=== PATIENT | male | born 1940 | race Caucasian/White ===

== ENCOUNTER 2017-10-13 15:18 | Emergency (ER) | payer MEDICARE, SELFPAY ==
[2017-10-13 15:27] VITALS: BP 139/63; PULSE 77; RESP 16; TEMP 36.8; O2SAT 95
--- NOTE | 2017-10-13 15:38 | ED.GENADUL_ITS ---
Disposition Clinical Impression: Closed head injury with brief loss of consciousness, Post concussive syndrome Disposition: HOME Condition: Stable Instructions: Head Injury (ED), Post Concussion Syndrome (ED) Additional Instructions: Drink plenty of fluids and get plenty of rest. Take Tylenol as needed and directed for pain. Follow-up with your primary care doctor within the next week. Return to the emergency department with any worsening or new concerning symptoms. Medical Decision Making - Radiology Data Radiology results: report reviewed, image reviewed CT head: Negative CT cervical spine: Negative - Medical Decision Making 77-year-old male who presents with head injury after hit on the top of his head with a tree branch at home while working outside prior to arrival. Brief LOC and multiple episodes of vomiting. Patient currently appears in no acute distress and he was able to ambulate back to the ED room. Left parietal ecchymosis but no lacerations. No focal deficits. Minimal midline lower cervical spine tenderness to palpation. Will give a dose of Tylenol, place a cervical collar, and send for CT head and cervical spine. 1715 --CT's reviewed and negative. Pt feels better and denies acute complaints. Instructed to rest, drink plenty of fluids and take Tylenol as needed and directed for pain. Instructed on postconcussive symptoms and that he can sometimes have headache, nausea, vomiting, dizziness for several days to weeks. He was instructed to return to the ER if he has any significant worsening of symptoms or any other concerns. Otherwise instructed to follow-up with primary care doctor for reevaluation within the next week. 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 Pt was outside working when a tree branch fell on his head. Pt admits to brief LOC and multiple episodes of vomiting en route. Pt admits to mild headache and neck pain. Denies any other injuries. - Related Data Chlorthalidone 12.5 mg PO DAILY 06/13/12 Losartan [Cozaar] 25 mg PO DAILY tab-cap 06/13/12 Amitriptyline HCl 25 mg PO HS #90 mg 08/21/12 Glimepiride [Amaryl] 2 mg PO DAILY tab-cap 08/21/12 Esomeprazole Magnesium [Nexium] 20 mg PO DAILY 06/09/17 Allergies Allergy/AdvReac Type Severity Reaction Status Date / Time JAKOB Inhibitors AdvReac Mild Unverified 06/12/17 08:48 TURKEY Allergy Mild Uncoded 06/12/17 08:48 Review of Systems Constitutional: denies: chills, fever Eyes: denies: eye pain ENT: denies: ear pain, dental pain Respiratory: denies: cough, shortness of breath Cardiovascular: denies: chest pain, dyspnea on exertion Gastrointestinal: denies: abdominal pain, nausea, vomiting Genitourinary: denies: urgency, dysuria, frequency Musculoskeletal: denies: back pain Skin: denies: rash, lesions Neurological: headache. denies: weakness, numbness Past Medical History - Past Medical History Medical history: diabetes, GERD, hypertension IBS Surgical history: cholecystectomy, herniorraphy, other (spinal cord stimulator ) - Social History Smoking status: never smoker Alcohol use: none Drug use: none General Exam - General Limitations: no limitations General appearance: alert, in no apparent distress - Head Head exam: Present: other (Approximately 3 x 3 cm area of tender ecchymosis noted to left parietal scalp. No open lacerations or abrasions.) - Eye Eye exam: Present: EOMI - Neck Neck exam: Present: other (Lower midline cervical spine tenderness to palpation. No bilateral paraspinal tenderness. No evidence of trauma to neck.) - Respiratory Respiratory exam: Present: normal lung sounds bilaterally. Absent: respiratory distress, wheezes, rales, rhonchi, stridor - Cardiovascular Cardiovascular Exam: Present: regular rate, normal rhythm. Absent: bradycardia , tachycardia - GI/Abdominal GI/Abdominal exam: Present: soft, normal bowel sounds. Absent: distended, tenderness, guarding, rebound, rigid - Neurological Exam Neurological exam: Present: alert, oriented X3, other (Muscle strength 5/5 bilateral upper extremities.) - Psychiatric Psychiatric exam: Present: normal affect - Skin Skin exam: Present: warm, dry, intact Course Vital Signs - 24 hr 10/13/17 15:27 Temperature 98.2 F Pulse 77 Respiratory 16 Rate Blood Pressure 139/63 Pulse Oximetry 95
--- NOTE | 2017-10-13 15:43 | DI.RPTCT_ITS ---
SYMPTOM/DIAGNOSIS: S/P HEAD INJURY, R/O INTRACRANIAL ABNORMALITY, CERVICAL FX NONCONTRAST HEAD CT: Comparison is made with 02 Jan 2010. No intracranial hemorrhage or skull fracture is seen. The sinuses and mastoid air cells appear clear. The ventricles are unchanged in size. IMPRESSION: No acute abnormality. CT CERVICAL SPINE: There is no evidence of fracture or subluxation. There are degenerative disc changes and mild facet degenerative changes. There is no prevertebral soft tissue swelling. The visualized portions of the lung apices show no evidence of pneumothorax. IMPRESSION: Degenerative changes. No acute abnormality.
[2017-10-13] MEDS: Acetaminophen 325 MG TAB 650 MG PO (16:27)
--- NOTE | 2017-10-13 16:49 | DI.VRAD_ITS ---
EXAM: CT Head Without Intravenous Contrast CLINICAL HISTORY: 77 years old, male; Pain; Headache; Headache not specified; Neck pain; Patient HX: Per pt: Tree fell on head; Additional info: R/O intracranial abnormality, cervical fracture TECHNIQUE: Axial computed tomography images of the head/brain without intravenous contrast. Coronal and sagittal reformatted images were created and reviewed. COMPARISON: No relevant prior studies available. FINDINGS: Brain: Nonspecific hypoattenuation of the periventricular and deep subcortical white matter, most likely secondary to chronic small vessel ischemic change. No intracranial hemorrhage or extra-axial fluid collection. No evidence of mass effect or midline shift. Garcia-white matter differentiation is normal. Ventricles: Prominence of the ventricles and sulci, most likely attributed to parenchymal volume loss. Bones/joints: Unremarkable. No acute fracture. Soft tissues: Minimal left frontal scalp contusion. Sinuses: Unremarkable as visualized. No acute sinusitis. Mastoid air cells: Unremarkable as visualized. No mastoid effusion. IMPRESSION: No acute intracranial pathology. EXAM: CT Cervical Spine Without Intravenous Contrast CLINICAL HISTORY: 77 years old, male; Pain; Headache; Headache not specified; Neck pain; Patient HX: Per pt: Tree fell on head; Additional info: R/O intracranial abnormality, cervical fracture TECHNIQUE: Axial computed tomography images of the cervical spine without intravenous contrast. Coronal and sagittal reformatted images were created and reviewed. COMPARISON: No relevant prior studies available. FINDINGS: Vertebrae: Vertebral body heights are maintained. No locked or perched facets. Multilevel facet arthropathy. No acute fracture. The dens is intact. Atlantoaxial intervals are normal. Discs/spinal canal/neural foramina: Multilevel degenerative changes with intervertebral disc height loss and osteophyte formation. No spinal canal stenosis. Soft tissues: Unremarkable. Lung apices: Unremarkable as visualized. IMPRESSION: No acute cervical spine fracture. Dictated and Authenticated by: Eb Berrios MD. Ordering:GENI SANTIZO MD
[2017-10-13 17:35] VITALS: BP 128/74; PULSE 68; RESP 18; TEMP 36.7; O2SAT 98
== END 2017-10-13 17:38 | disposition home or self-care (01) ==
PROVIDERS: Emergency Provider Physician Assistant; PCP Internal Medicine
DX: S06.9X9A Unspecified intracranial injury with loss of consciousness of unspecified duration, initial encounter (principal); F07.81 Postconcussional syndrome; R11.2 Nausea with vomiting, unspecified; M54.2 Cervicalgia; W20.8XXA Other cause of strike by thrown, projected or falling object, initial encounter; Y93.H2 Activity, gardening and landscaping; E11.9 Type 2 diabetes mellitus without complications; Z79.84 Long term (current) use of oral hypoglycemic drugs; I10 Essential (primary) hypertension
CPT/HCPCS: 70450; 72125; 99284; 99285; L0172

== ENCOUNTER 2017-12-22 10:13 | Outpatient (REF) | payer MEDICARE, SELFPAY ==
[2017-12-22 19:08] LABS: Cholesterol 125 mg/dL (50-200); HDL Cholesterol 37 mg/dL (40-60); LDL CHOLESTEROL 67 mg/dL (<100); Triglyceride 224 mg/dL (30-150)
== END 2017-12-22 10:33 ==
LOC: NCHCN 10:13
PROVIDERS: Visit Provider Internal Medicine
DX: E78.5 Hyperlipidemia, unspecified (principal)
CPT/HCPCS: 80061; 83721

== ENCOUNTER 2017-12-26 15:14 | Outpatient (CLI) | payer MEDICARE, SELFPAY ==
--- NOTE | 2017-12-26 13:30 | DI.CT_ITS ---
SYMPTOM/DIAGNOSIS: H/O HEAD INJURY, Z87.828, DIZZINESS, R42 NONCONTRAST HEAD CT: Comparison is made with 10/13/17. No intracranial hemorrhage or skull fracture is seen. The ventricles are normal in size. There is no significant atrophy. The orbits are unremarkable. The sinuses and mastoid air cells appear clear where visualized. IMPRESSION: Negative head CT.
== END 2017-12-26 15:34 ==
PROVIDERS: PCP Internal Medicine; Visit Provider Internal Medicine
DX: R42 Dizziness and giddiness (principal); Z87.828 Personal history of other (healed) physical injury and trauma
CPT/HCPCS: 70450

== ENCOUNTER 2018-07-02 10:40 | Outpatient (CLI) | payer MEDICARE, SELFPAY ==
--- NOTE | 2018-07-02 10:19 | DI.RAD_ITS ---
SYMPTOM/DIAGNOSIS: THORACIC BACK PAIN, M54.9, H/O FALL THORACIC SPINE: AP and lateral views. There is a mild right convex curvature of the thoracic spine. The disc heights and vertebral bodies are well maintained. There is bridging of the vertebral bodies anteriorly throughout. No suspicious lytic or sclerotic lesions are seen. There is a nerve stimulator device present. 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 Mild right convex curvature of the thoracic spine. No acute abnormality.
== END 2018-07-02 11:00 ==
PROVIDERS: PCP Internal Medicine; Visit Provider Specialist/Technologist Athletic Trainer
DX: M54.6 Pain in thoracic spine (principal); M48.14 Ankylosing hyperostosis [Forestier], thoracic region; Z96.89 Presence of other specified functional implants
CPT/HCPCS: 72072

== ENCOUNTER 2018-08-02 16:03 | Outpatient (REF) | payer MEDICARE, SELFPAY ==
[2018-08-02 21:29] LABS: Anion Gap 10.4 mmol/L (3-11); BUN 20 mg/dL (7-18); CO2 24.6 mmol/L (21.0-32.0); CREATININE 1.22 mg/dL (0.70-1.30); Calcium 9.3 mg/dL (8.5-10.1); Chloride 101 mmol/L (98-107); Estimated GFR 57.75 (mL/min/1.73m2); Glucose 271 mg/dL (70-100); Potassium 3.7 mmol/L (3.5-5.1); Sodium 136 mmol/L (136-145)
== END 2018-08-02 16:23 ==
LOC: NCHCN 16:03
PROVIDERS: PCP Internal Medicine; Visit Provider Internal Medicine
DX: I10 Essential (primary) hypertension (principal)
CPT/HCPCS: 80048

== ENCOUNTER 2019-07-11 09:58 | Outpatient (REF) | payer MEDICARE, SELFPAY ==
[2019-07-11 21:12] LABS: Anion Gap 8.9 mmol/L (3-11); BUN 24 mg/dL (7-18); CO2 29.1 mmol/L (21.0-32.0); Calcium 9.2 mg/dL (8.5-10.1); Chloride 93 mmol/L (98-107); Glucose 490 mg/dL (74-106); Potassium 4.1 mmol/L (3.5-5.1); Sodium 131 mmol/L (136-145)
== END 2019-07-11 10:18 ==
LOC: NCHCN 09:58
PROVIDERS: PCP Internal Medicine; Visit Provider Internal Medicine
DX: E11.9 Type 2 diabetes mellitus without complications (principal); I10 Essential (primary) hypertension
CPT/HCPCS: 80048; 83036

== ENCOUNTER 2020-02-27 10:42 | Outpatient (REF) | payer MEDICARE, SELFPAY ==
[2020-02-27 16:18] LABS: HGB 13.2 g/dL (13.5-17.5); MCH 33.3 pg (27.0-33.0); MCHC 34.7 % (32.0-36.0); MPV 10.5 fL (8.0-11.0); Platelet Count 233 10^3/uL (130-400); RBC 3.96 10^6/uL (4.36-5.78); RDW 15.3 % (11.8-14.1); RDW-SD 52.6 fL; WBC 7.16 10^3/uL (4.4-10.8)
[2020-02-27 16:23] LABS: Anion Gap 9.9 mmol/L (3-11); BUN 23 mg/dL (7-18); CO2 24.1 mmol/L (21.0-32.0); CREATININE 1.23 mg/dL (0.70-1.30); Calcium 9.3 mg/dL (8.5-10.1); Chloride 103 mmol/L (98-107); Estimated GFR 57.06 (mL/min/1.73m2); Glucose 181 mg/dL (74-106); Potassium 3.9 mmol/L (3.5-5.1); Sodium 137 mmol/L (136-145)
== END 2020-02-27 11:02 ==
LOC: NCHCN 10:42
PROVIDERS: PCP Internal Medicine; Visit Provider Internal Medicine
DX: M79.18 Myalgia, other site (principal); M54.5 Low back pain
CPT/HCPCS: 80048; 85027

== ENCOUNTER 2020-03-02 01:57 | Outpatient (CLI) | payer MEDICARE, SELFPAY ==
--- NOTE | 2020-03-02 | DI.RAD_ITS ---
EXAM: XR PELVIS AP CLINICAL HISTORY: MUSCULOSKELETAL PAIN, M79.10, LOW BACK PAIN, M54.5, RIB PAIN, R07.81. TECHNIQUE: 2D digital imaging was performed. COMPARISON: No exams were available for comparison FINDINGS: There is no evidence of pelvic or hip fracture. Mild degenerative changes in the right hip are noted . No osseous lesions. Thoracic stimulator lead device is noted left of center over the buttock. IMPRESSION: DATA REPOSITORY: RADIATION DOSE DELIVERED:
--- NOTE | 2020-03-02 | DI.RAD_ITS ---
EXAM: XR LUMBAR SPINE COMPLETE CLINICAL HISTORY: MUSCULOSKELETAL PAIN, M79.10, RIB PAIN, R07.81, LOW BACK PAIN, M54.5. TECHNIQUE: 2D digital imaging was performed. COMPARISON: No exams were available for comparison FINDINGS: There are thoracic epidural electrodes which appear to enter the spinal canal at approximately T12 le fredy. There is no evidence of lumbar spine fracture or listhesis. No pars interarticularis defects. Multi level anterior osseous lipping is noted but no disc space narrowing. Some degenerative changes in th e facet joints seen at L5-S1 and L4-5 levels. Also bridging right-sided osteophytes at L2-3 level. Sacroiliac joints appear unremarkable. No osseous lesions. No scoliosis. IMPRESSION: Thoracic epidural leads which enter at T12. Facet degenerative changes L5-S1 level and mild facet arthropathy also evident at L4-5. DATA REPOSITORY: RADIATION DOSE DELIVERED:
--- NOTE | 2020-03-02 | DI.RAD_ITS ---
EXAM: XR RIBS BI INCLUDE CHEST CLINICAL HISTORY: RIB PAIN, R07.81, MUSCULOSKELETAL PAIN, M79.10 TECHNIQUE: 2D digital imaging was performed. COMPARISON: No exams were available for comparison FINDINGS: There are no acute rib fractures evident. No lytic rib lesions identified. No lung contusion or pneumothorax. There is no pleural effusion evident. Heart size is normal and there is no significant mediastinal widening. Epidural leads are noted. The electrode lead tips are at the lower thoracic spine level. IMPRESSION: 1. No rib fractures evident. Also no obvious rib lesions. 2. No ipsilateral lung nor pleural abnormality evident. No pneumothorax. DATA REPOSITORY: RADIATION DOSE DELIVERED:
== END 2020-03-02 02:17 ==
PROVIDERS: PCP Internal Medicine; Visit Provider Internal Medicine
DX: R07.81 Pleurodynia (principal); M54.5 Low back pain; M17.11 Unilateral primary osteoarthritis, right knee; M47.816 Spondylosis without myelopathy or radiculopathy, lumbar region; Z96.82 Presence of neurostimulator
CPT/HCPCS: 71046; 71110; 72110; 72170

== ENCOUNTER 2020-03-03 22:38 | Outpatient (REF) | payer MEDICARE, SELFPAY ==
[2020-03-05 03:40] LABS: COVID-19 RT-PCR UVMMC Result Negative (Negative)
== END 2020-03-03 22:58 ==
LOC: NCHCN 22:38
PROVIDERS: PCP Internal Medicine; Visit Provider Internal Medicine
DX: Z20.828 Contact with and (suspected) exposure to other viral communicable diseases (principal)
CPT/HCPCS: U0003

== ENCOUNTER 2020-04-02 21:29 | Outpatient (REF) | payer MEDICARE, SELFPAY ==
[2020-04-02 20:52] LABS: Hemoglobin A1C 5.1 % (<5.7)
[2020-04-02 21:19] LABS: Vitamin B12 259 pg/mL (193-986)
[2020-04-06 10:58] LABS: Lyme Ab w Rflx to Lyme Confirm Negative (Negative)
[2020-04-06 13:25] LABS: Albumin 57.6 % (55.8-66.1); Total Protein 7.4 g/dL (6.3-8.2)
== END 2020-04-02 21:49 ==
LOC: NCHCN 21:29
PROVIDERS: PCP Internal Medicine; Visit Provider Internal Medicine
DX: E11.9 Type 2 diabetes mellitus without complications (principal); G83.12 Monoplegia of lower limb affecting left dominant side; G62.89 Other specified polyneuropathies; M62.81 Muscle weakness (generalized)
CPT/HCPCS: 82607; 83036; 84165; 86618

== ENCOUNTER 2020-04-06 02:18 | Outpatient (CLI) | payer MEDICARE, SELFPAY ==
--- NOTE | 2020-04-06 | DI.CT_ITS ---
EXAM: CT SACRUM AND COCCYX WO CLINICAL HISTORY: LT LEG WEAKNESS, G83.10. TECHNIQUE: Imaging Protocol: Axial computed tomography images with coronal and sagittal reformatted images were created and reviewed. COMPARISON: CT CT LUMBAR SPINE WO from 04/06/2020 FINDINGS: There are bridging anterior osteophytes of the sacroiliac joints bilaterally. No erosions are seen a t the sacroiliac joints. 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 The bone s are normally mineralized. No acute fracture or dislocation. There is atherosclerosis present. Battery pack for the patient's nerve stimulating device is seen in the left flank. There is diverticulosis of the sigmoid colon. No evidence of acute diverticulitis. IMPRESSION: 1. Bridging anterior osteophytes in the sacroiliac joints bilaterally. Differential considerations i nclude dish and osteoarthritis. There is a question of ankylosis of the left SI joint and sacroiliit is should be considered. 2. Sigmoid diverticulosis but no evidence of acute diverticulitis. RADIATION DOSE DELIVERED: 430.93mGy.cm Total DLP 430.93mGy.cm Total DLP DATA REPOSITORY: All CT scans at this facility are submitted to the National Radiology Data Registry (NRDR) Dose Index Registry (DIR) with the [employer] ([employer]). RADIATION OPTIMIZATION: All CT scans at this facility use at least one of these dose optimization te chniques: automated exposure control; mA and/or kV adjustment per patient size (includes targeted exa ms where dose is matched to clinical indication); or iterative reconstruction.
--- NOTE | 2020-04-06 | DI.CT_ITS ---
EXAM: CT LUMBAR SPINE WO CLINICAL HISTORY: LT LEG WEAKNESS,G83.10. TECHNIQUE: Imaging Protocol: Axial computed tomography images with coronal and sagittal reformatted images were created and reviewed COMPARISON: CR XR LUMBAR SPINE COMPLETE from 03/02/2020 FINDINGS: Bones: The last intervertebral disc space is designated the L5/S1 level for the numbering purpose of this examination. The vertebral body heights are well maintained. Alignment is satisfactory. No frac ture is seen. There are endplate osteophytes throughout the lumbar spine. Degenerative changes of th e facets are seen from L1-2 through L5-S1. T12-L1: No disc herniations or bulges are present. No significant central spinal canal or neural for aminal stenosis. L1-2: There is a mild diffuse disc bulge. This in combination with degenerative changes of the face t joints cause mild narrowing of the central spinal canal. There is mild narrowing of the neural for amen. L2-3: There is a mild diffuse disc bulge. This in combination with facet arthropathy causes mild na rrowing of the central spinal canal. No significant neural foraminal stenosis. L3-4: Mild diffuse disc bulge is present. This in conjunction with facet arthropathy causes mild na rrowing of the central spinal canal. No significant neural foraminal stenosis. L4-5: Mild diffuse disc bulge. There is mild narrowing of the central spinal canal. There is mild bilateral neural foraminal narrowing. L5-S1: No disc herniations or bulges are present. No significant central spinal canal or neural fora deidre stenosis. Soft Tissues: The visualized SI joints and sacrum are will maintained. The paraspinal soft tissues a re unremarkable. The distal aspect of a nerve stimulating device is seen. IMPRESSION: Multilevel degenerative changes resulting in central spinal canal or neural foraminal stenosis as lai cribed above. RADIATION DOSE DELIVERED: 716.88mGy.cm Total DLP 716.88mGy.cm Total DLP DATA REPOSITORY: All CT scans at this facility are submitted to the National Radiology Data Registry (NRDR) Dose Index Registry (DIR) with the [employer] (ACR). RADIATION OPTIMIZATION: All CT scans at this facility use at least one of these dose optimization te chniques: automated exposure control; mA and/or kV adjustment per patient size (includes targeted exa ms where dose is matched to clinical indication); or iterative reconstruction.
== END 2020-04-06 02:38 ==
PROVIDERS: PCP Internal Medicine; Visit Provider Internal Medicine
DX: M51.26 Other intervertebral disc displacement, lumbar region (principal); M48.061 Spinal stenosis, lumbar region without neurogenic claudication; M47.816 Spondylosis without myelopathy or radiculopathy, lumbar region; M25.78 Osteophyte, vertebrae; K57.30 Diverticulosis of large intestine without perforation or abscess without bleeding; G83.14 Monoplegia of lower limb affecting left nondominant side
CPT/HCPCS: 72131; 72192

== ENCOUNTER → 2020-04-09 13:40 | Outpatient (BNVA) | payer MEDICARE, SELFPAY | PROVIDERS: PCP Internal Medicine; Referring Provider Internal Medicine; Visit Provider Psychiatry & Neurology Neurology | DX: E11.42 Type 2 diabetes mellitus with diabetic polyneuropathy (principal); R29.898 Other symptoms and signs involving the musculoskeletal system; M54.5 Low back pain; I10 Essential (primary) hypertension | CPT/HCPCS: 95886; 95911; 99215; G2212 ==

== ENCOUNTER 2020-07-24 12:17 | Outpatient (REF) | payer MEDICARE, SELFPAY ==
[2020-07-24 18:50] LABS: HCT 39.4 % (40.0-50.0); HGB 13.6 g/dL (13.5-17.5); MCH 33.2 pg (27.0-33.0); MCHC 34.5 % (32.0-36.0); MCV 96.1 fL (80-95); MPV 10.2 fL (8.0-11.0); Platelet Count 284 10^3/uL (130-400); RDW 14.9 % (11.8-14.1); RDW-SD 52.4 fL; WBC 8.34 10^3/uL (4.4-10.8)
[2020-07-24 19:06] LABS: ALT 26 U/L (16-63); AST 18 U/L (15-37); Alkaline Phosphatase 83 U/L (46-116); Anion Gap 12.1 mmol/L (3-11); BUN 17 mg/dL (7-18); Bilirubin, Total 0.9 mg/dL (0.2-1.0); CO2 24.9 mmol/L (21.0-32.0); CREATININE 1.1 mg/dL (0.70-1.30); Calcium 9.2 mg/dL (8.5-10.1); Chloride 103 mmol/L (98-107); Glucose 199 mg/dL (74-106); Potassium 4.1 mmol/L (3.5-5.1); Sodium 140 mmol/L (136-145); Total Protein 7.8 g/dL (6.4-8.2)
[2020-07-24 19:26] LABS: Hemoglobin A1C 4.8 % (<5.7)
== END 2020-07-24 12:18 | disposition home or self-care (01) ==
LOC: NCHCN 12:17
PROVIDERS: PCP Internal Medicine; Visit Provider Internal Medicine
DX: E11.9 Type 2 diabetes mellitus without complications (principal); I10 Essential (primary) hypertension; Z01.812 Encounter for preprocedural laboratory examination
CPT/HCPCS: 80053; 85027; 83036

== ENCOUNTER 2020-08-26 17:04 | Outpatient (REF) | payer MEDICARE, SELFPAY ==
[2020-08-26 15:19] LABS: C Diff PCR Negative (Negative)
== END 2020-08-26 17:05 | disposition home or self-care (01) ==
LOC: NCHCN 17:04
PROVIDERS: PCP Internal Medicine; Visit Provider Internal Medicine
DX: R19.7 Diarrhea, unspecified (principal)
CPT/HCPCS: 87493; 82272; 82274; 83630; 87230

== ENCOUNTER 2020-10-07 09:42 | Outpatient (REF) | payer MEDICARE, SELFPAY ==
[2020-10-07 14:35] LABS: Hemoglobin A1C 5.5 % (<5.7)
== END 2020-10-07 09:43 | disposition home or self-care (01) ==
LOC: NCHCN 09:42
PROVIDERS: PCP Internal Medicine; Visit Provider Internal Medicine
DX: E11.9 Type 2 diabetes mellitus without complications (principal)
CPT/HCPCS: 83036

== ENCOUNTER 2020-10-13 18:52 | Observation (INO) | payer MEDICARE, SELFPAY ==
[2020-10-13] VITALS (44 sets, daily range): BP systolic 122–162; BP diastolic 50–75; PULSE 71–83; RESP 9–22; TEMP 37; O2SAT 90–100
--- NOTE | 2020-10-13 19:30 | RT.EKG_ITS ---
APPROVED REPORT Exam: Resting ECG Reason for Exam: syncope Patient Location: E HR:80 bpm ECG Measurements Heart Rate 80 AXIS HI 191 P 50 QRSd 97 QRS 65 QT 385 T 85 QTc 445 Conclusion Sinus rhythm...normal P axis, V-rate 60- 99 Low voltage, extremity leads...all extremity leads <0.5mV Nonspecific T abnormalities, lateral leads...T <-0.10mV, I aVL V5 V6. T wave inversion in aVL. No STEMI. I have reviewed and interpreted ECG and agree with software generated interpretation.
--- NOTE | 2020-10-13 19:35 | ED.GENADUL_ITS ---
Discharge Plan Disposition Condition: Stable Discharge Details Chief Complaint: Nk/Back Pain Admit Date/Time: 10/13/20 23:16 Admit Provider: Leonard Aguila Attending Provider: Leonard Aguila Primary Care Provider: Miguel A Varner ED Provider: Teena Copeland Discharge Instructions Activity:: Activity as Tolerated Equipment/Supplies:: No Equipment Needed Diet:: As Tolerated Discharge Orders Discharge Orders: Discharge Order (Routine); Ordered 10/14/20 Ordered By: Cecilia Scanlon Discharge Data Discharge Date/Time-TO BE ENTERED AT DEPARTURE: 10/14/20 01:20 Medical Decision Making Patient is a pleasant 80-year-old male presenting today with chief complaint of syncopal episode. Patient reports that he was coming out of his house onto his lawn, states that he was feeling quite well. However, he reports that he woke up just prior to hitting the ground. States that he is now having some right- sided chest wall pain and severe discomfort with inspiration. States that he held his head up, did not strike his head. Denies any headache, visual changes. He denies any weakness. Patient reports that he had surgery on his back beginning of August. Since that time, has had improving left lower extremity weakness. Has been ambulating more than, surgery gotten very beneficial. Not having any pain or complaints associated with this. He received 4 mg of morphine prior to arrival. States that he took Tylenol this afternoon prior to his fall. On exam, he appears uncomfortable but nontoxic. Normal cardiac exam. Primary concern at this time is right lateral inferior chest wall pain. No objective evidence of trauma. Lungs are clear. With no prodromal symptoms, concerned for possible cardiac source of his syncope. Although the CP is most consistent with trauma, also considered PE as source of pleuritic pain and syncope. Will obtain CT PE. ECG reviewed by Dr. Saxena. Concerning for T wave abnormalities and low voltage. Labs reviewed, no leukocytosis, stable H&H. Glucose elevated at 240. CT reviewed by radiologist: FINDINGS: Brain: No acute intracranial hemorrhage, mass-effect, midline shift, or extra-axial collection is seen. The sahni white matter differentiation appears preserved. There is symmetric parenchymal volume loss. Cerebral ventricles: The ventricular system and basilar cisterns appear appropriate in size and configuration given the degree of parenchymal volume loss. Paranasal sinuses: There is mucoperiosteal thickening in the right maxillary sinus. Otherwise, the visualized paranasal sinuses appear clear. Mastoid air cells: The mastoid air cells appear well-aerated. Auditory system: The middle ear cavities appear clear. Orbital cavity: The globes and intraorbital structures appear grossly intact. Bones/joints: The bony calvarium appears intact. No depressed skull fracture is seen. There is hyperostosis frontalis interna. There is an old left medial orbital wall blowout fracture. There is rightward deviation of the nasal septum. Soft tissues: No gross focal scalp hematoma is seen. IMPRESSION: No acute intracranial hemorrhage or depressed skull fracture. FINDINGS: Pulmonary arteries: Normal. No pulmonary emboli. Aorta: Unremarkable. No aortic aneurysm. No aortic dissection. Lungs: Unremarkable. No consolidation. No masses. Pleural spaces: Unremarkable. No pneumothorax. No pleural effusion. Heart: Coronary artery calcifications identified. Lymph nodes: Unremarkable. No enlarged lymph nodes. Gallbladder and bile ducts: Status post cholecystectomy. Stomach and bowel: There is a fat density focus that looks fairly elongated in the 3rd portion of the duodenum series 4, images 74-76. It measures approximately 0.6 by at least 2.7 cm. Suspect lipoma. Bones/joints: Unremarkable. No acute fracture. Soft tissues: Unremarkable. IMPRESSION: 1. No evidence for pulmonary embolus. 2. 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 3. No definite acute posttraumatic abnormality evident. Discussed findings with patient and his . He has required a few alloquotes of morphine for his rib pain. Will start him on IS. His pain has been difficult to manage, concerned that this may be hard for him at home. Also concerned for source of syncope. Feel that admission for observation would be appropriate. Patient in agreement with this plan. Consulted with hospitalist who agrees to admission. HPI General Mode of arrival: EMS . Date/Time Provider Initiated Documentation: 10/13/20 19:35 . Limitations to Documentation: no limitations . Information obtained by: patient, family (), EMS and RN notes reviewed . History of Present Illness 80 year old M presents to the emergency department with the chief complaint of right sided lower chest wall pain after syncopal episode, described as moderate, with intensity rated at 3. Quality is described as stabbing, and is localized to the chest. Patient reports no radiation. Patient started experiencing this minute(s) and it has been constant. Immobilization improves symptom(s), Movement worsens symptoms . Patient notes no other symptoms.. Patient did receive the following treatments prior to arrival, other (morphine) Related Data Home Medications Medication Instructions Recorded Confirmed esomeprazole magnesium [Nexium] 20 mg PO DAILY 06/09/17 10/13/20 hydrochlorothiazide 12.5 mg tablet 12.5 mg PO DAILY 04/08/20 10/13/20 acetaminophen 500 mg tablet 500 mg PO Q6H PRN 04/09/20 10/13/20 losartan 50 mg PO DAILY #0 tab 10/14/20 10/13/20 Previous Rx's Medication Instructions Recorded losartan 50 mg PO DAILY #0 tab 10/14/20 Allergies Allergy/AdvReac Type Severity Reaction Status Date / Time metformin Allergy Intermediate Verified 10/13/20 19:06 Hocczjs-Yef-Rby Reductase Allergy Intermediate Verified 10/13/20 19:06 Inhibitor JAKOB Inhibitors AdvReac Mild Unverified 10/13/20 19:06 TURKEY Allergy Mild Uncoded 10/13/20 19:06 General Stated Complaint: Orthopedic SRIDEVI: 3 Review of Systems Constitutional Constitutional: Reports as per HPI, Denies chills, Denies fever(s), Denies headache(s), Denies lethargy and Denies poor appetite Eyes Eyes: Denies change in vision ENT Ears, Nose, Mouth, and Throat: Denies vertigo, Denies dizziness and Denies headache(s) Cardiovascular Cardiovascular: Reports as per HPI, Reports syncope, Denies dyspnea and Denies dyspnea on exertion Respiratory Respiratory: Reports as per HPI, Denies chest congestion, Denies cough, Reports pain on inspiration, Reports pain with cough, Denies dyspnea, Denies dyspnea on exertion and Denies wheezing Gastrointestinal Gastrointestinal: Reports as per HPI, Denies abdominal pain, Denies diarrhea, Denies nausea and Denies vomiting Genitourinary Genitourinary: Denies system reviewed and no additional complaints, except as documented (denies change in urinary habits) Musculoskeletal Musculoskeletal: Reports as per HPI and Denies back pain Integumentary/Breasts Skin/Breast: Reports as per HPI and Denies rash Neurologic Neurologic: Reports as per HPI, Denies confusion, Denies vertigo, Denies dizziness, Reports syncope and Denies headache(s) Psychiatric Psychiatric: Denies confusion Allergic/Immunologic Allergic/Immunologic: Denies wheezing [facility] Medical History Actinic keratosis Acute chest wall pain Arthritis of right ankle Esophagitis, reflux History of IBS Hx of adenomatous colonic polyps Hx of head injury Hyperlipidemia Hypertension Lactose intolerance Low back pain Peripheral neuropathy Reflex sympathetic dystrophy of lower limb Right leg Renal cyst, congenital, right Retinal hemorrhage Rib pain Seborrheic dermatitis Sleep disturbances Syncope and collapse determined by examination Type 2 diabetes mellitus Surgical History S/P cataract extraction S/P cholecystectomy S/P hernia surgery S/P right knee surgery S/P skin cancer resection Family History Mother Diabetes Social History Smoking/Tobacco Use Status: Former Tobacco Use Smoking risk assessment performed?: Yes Alcohol Intake: never Drug use: Never Household members: spouse Housing: house Number of Children: 4 current occupation: Retired Pets and animals: Yes Pets and animals: cat(s) What is your relationship status?: Panel score (0-1 are the most socially isolated patients): 1 Seatbelt use: always Do you feel safe at home: Yes Do you feel safe in your relationship?: Yes Exam Const General: cooperative, healthy appearing, uncomfortable, no acute distress and well developed Nutritional Appearance: average body habitus and well nourished Orientation: alert, awake and oriented x3 HENMT Head: normal to inspection Ears: hearing grossly normal bilaterally Mouth: moist mucous membranes Chest Chest: normal inspection of the chest, normal palpation of entire chest wall, no crepitus and tenderness (right lateral chest wall) Resp Effort & Inspection: normal respiratory effort, able to speak in complete sentences and no respiratory distress Auscultation: clear to auscultation bilaterally, no rales, no rhonchi and no wheezes Cardio Rate: regular rate Rhythm: regular rhythm Heart Sounds: S1 normal and S2 normal GI Inspection: normal to inspection, no edema and non-distended Palpation: soft, no hepatosplenomegaly, not firm, no guarding, not rigid and nontender Auscultation: normal bowel sounds Back/Spine/Pelvis Back: no CVA tenderness Cervical Spine: normal cervical lordosis, cervical ROM normal, No cervical muscular tenderness, No pain with cervical ROM, No cervical spasm and No step off deformity Thoracic/Lumbar Spine: thoracic and lumbar spine normal to inspection Skin General skin exam: no rashes or lesions noted Trauma: no lacerations or abrasions Neuro General: patient alert, patient awake and patient oriented x3 Cognition: normal cognition Speech: speech normal Motor: muscle tone normal throughout, strength 5/5 throughout, no pronator drift, no movement abnormalities noted and no fasciculations Sensory Exam: no sensory deficits noted Extrem General: normal to inspection, capillary refill normal, no pedal edema and no calf tenderness Psych Appearance: grossly normal and well kempt Mental Status: mental status grossly normal Speech and Movement: speech and movement normal Course Vital Signs Vital signs: Vital Signs Temperature 37 C 10/13/20 18:59 Pulse 78 10/13/20 18:59 Respiratory Rate 18 10/13/20 18:59 Blood Pressure 145/67 H 10/13/20 18:59 Pulse Oximetry 98 10/13/20 18:59 Temperature 37 C 10/13/20 18:59 Temperature Source Temporal Artery Scan 10/13/20 18:59 Pulse 78 10/13/20 18:59 Respiratory Rate 18 10/13/20 18:59 Respiratory Effort Non-Labored 10/13/20 19:08 Blood Pressure 145/67 H 10/13/20 18:59 Blood Pressure Position Supine 10/13/20 18:59 Pulse Oximetry 98 10/13/20 18:59 Oxygen Delivery Method Room Air 10/13/20 18:59 Oxygen Flow Rate 0 10/13/20 18:59 Pain Level 3 10/13/20 19:19
--- NOTE | 2020-10-13 19:45 | DI.CT_ITS ---
Exam(s) CT HEAD WO EXAM: CT HEAD WO CLINICAL HISTORY: fall. TECHNIQUE: Imaging Protocol: Axial computed tomography images with coronal and sagittal reformatted images were created and reviewed COMPARISON: CT CT HEAD WO from 12/26/2017 FINDINGS: Ventricles and Extra axial spaces: Normal in size and morphology for the patient's age. Hemorrhage: None. Cerebral parenchyma: Atrophy. White matter changes consistent with small vessel disease. Midline shift: None. Brainstem/Cerebellum: Normal. Calvarium: Hyperostosis frontalis interna. Old left medial orbital fracture. Visualized Paranasal sinuses/Mastoids: Mucosal thickening right maxillary sinus. IMPRESSION: No acute abnormality. RADIATION DOSE DELIVERED: 873.2mGy.cm Total DLP 873.2mGy.cm Total DLP DATA REPOSITORY: All CT scans at this facility are submitted to the National Radiology Data Registry (NRDR) Dose Index Registry (DIR) with the [employer] ([employer]). RADIATION OPTIMIZATION: All CT scans at this facility use at least one of these dose optimization te chniques: automated exposure control; mA and/or kV adjustment per patient size (includes targeted exa ms where dose is matched to clinical indication); or iterative reconstruction.
--- NOTE | 2020-10-13 19:46 | DI.CT_ITS ---
Exam(s) CT CHEST PE CTA EXAM: CT CHEST PE CTA CLINICAL HISTORY: syncopal episode, right lower chest wall pain. TECHNIQUE: Imaging Protocol: Axial CT angiography was performed with multi-slice acquisition and mu lti-planar and/or 3D reconstructions. CONTRAST MATERIAL: Intravenous: Omnipaque 350 Contrast volume:100 ml COMPARISON: CT RENAL COLIC WO CONTRAST from 02/04/2010 CR XR RIBS BI INCLUDE CHEST from 03/02/2020 CR XR RIBS BI INCLUDE CHEST from 03/02/2020 FINDINGS: Images include from the level of the clavicles flow through the lower poles of the kidneys. Pulmonary Arteries: No evidence of filling defect to suggest pulmonary emboli. Tracheobronchial tree: Patent where visualized. Mediastinum and Symone: No dominant adenopathy or fluid collection. Pulmonary parenchyma: No consolidation or dominant measurable mass. No architectural distortion. Pleura: No effusion or pneumothorax. Heart: The heart is mildly dilated. Mild coronary artery calcifications are seen. Aorta: Thoracic aorta non-dilated. Minimal calcifications. Upper abdomen: Status post cholecystectomy. Stable fatty density lesion seen within the third porti on of the duodenum, consistent with a lipoma. stable fatty density lesion of the left adrenal gland . Fatty infiltration of the liver. Moderate atherosclerotic changes abdominal aorta. Bones: Flowing osteophytes. No compression fracture. No rib fractures visible. : IMPRESSION: No evidence of pulmonary embolism or other acute abnormality.. RADIATION DOSE DELIVERED: 582.93mGy.cm Total DLP DATA REPOSITORY: All CT scans at this facility are submitted to the National Radiology Data Registry (NRDR) Dose Index Registry (DIR) with the [employer] ([employer]). RADIATION OPTIMIZATION: All CT scans at this facility use at least one of these dose optimization te chniques: automated exposure control; mA and/or kV adjustment per patient size (includes targeted exa ms where dose is matched to clinical indication); or iterative reconstruction.
[2020-10-13] MEDS: Normal Saline 1,000 ML 1000 ML IV (20:00)
[2020-10-13] MEDS: MORPHine 4 MG/ML SYR IVP ×2 (20:01→23:09)
[2020-10-13 20:09] LABS: Abs Immature Grans 0.04 10^3/uL (0.0-0.06); Absolute Basophil Count 0.01 10^3/uL (0.0-0.2); Absolute Lymphocyte Count 1.51 10^3/uL (1.2-3.4); Absolute Monocyte Count 0.68 10^3/uL (0.1-0.8); Absolute Neutrophil Count 7.55 10^3/uL (1.2-6.7); Basophils % 0.1; HCT 34.7 % (40.0-50.0); HGB 12.2 g/dL (13.5-17.5); Immature Grans % 0.4; Lymphocytes % 15.3; MCH 32.8 pg (27.0-33.0); MCHC 35.2 % (32.0-36.0); MCV 93.3 fL (80-95); MPV 10.4 fL (8.0-11.0); Monocytes % 6.9; Neutrophils % 76.3; Nucleated RBC 0 %; Platelet Count 200 10^3/uL (130-400); RBC 3.72 10^6/uL (4.36-5.78); RDW 15.3 % (11.8-14.1); RDW-SD 52.7 fL; WBC 9.89 10^3/uL (4.4-10.8)
[2020-10-13 20:23] LABS: ALT 17 U/L (16-63); AST 18 U/L (15-37); Albumin 3.6 g/dL (3.4-5.0); Alkaline Phosphatase 88 U/L (46-116); Anion Gap 9.8 mmol/L (3-11); BUN 16 mg/dL (7-18); Bilirubin, Total 1.1 mg/dL (0.2-1.0); CO2 24.2 mmol/L (21.0-32.0); CREATININE 1.1 mg/dL (0.70-1.30); Calcium 9.3 mg/dL (8.5-10.1); Chloride 105 mmol/L (98-107); Glucose 241 mg/dL (74-106); Magnesium 1.7 mg/dL (1.8-2.4); Potassium 3.6 mmol/L (3.5-5.1); Sodium 139 mmol/L (136-145); Total Protein 7.2 g/dL (6.4-8.2)
[2020-10-13 20:24] LABS: PTT Activated 23.2 sec (21.0-27.5); Prothrombin Time 10.3 sec (9.3-11.0); Troponin I < 0.05 ng/mL (<0.06)
--- NOTE | 2020-10-13 20:46 | NUR.NOTE ---
Patient requests to void. Urinal provided. Able to turn to left side. Tolerates movement well; complains of increased mid back pain. Spouse at bedside. Unable to void. Will try again later.Nursing Note:
--- NOTE | 2020-10-13 21:33 | NUR.NOTE ---
To CT Scan per cartNursing Note:
[2020-10-13] MEDS: Omnipaque 350 MG/ML 100 ML BTL IV (21:42)
[2020-10-13] MEDS: Normal Saline - Diluent 50 ML VIAL IV (21:43)
[2020-10-13] MEDS: Normal Saline Flush 10 ML SYR IVP (21:43)
--- NOTE | 2020-10-13 21:59 | DI.VRAD_ITS ---
PROCEDURE INFORMATION: Exam: CT Head Without Contrast Exam date and time: 10/13/2020 7:54 PM Age: 80 years old Clinical indication: Injury or trauma; Fall; Blunt trauma (contusions or hematomas); Consciousness not specified; Injury date: 10/13/20 TECHNIQUE: Imaging protocol: Computed tomography of the head without contrast. Radiation optimization: All CT scans at this facility use at least one of these dose optimization techniques: automated exposure control; mA and/or kV adjustment per patient size (includes targeted exams where dose is matched to clinical indication); or iterative reconstruction. COMPARISON: CT HEAD WO 12/26/2017 1:16 PM FINDINGS: Brain: No acute intracranial hemorrhage, mass-effect, midline shift, or extra-axial collection is seen. The sahni white matter differentiation appears preserved. There is symmetric parenchymal volume loss. Cerebral ventricles: The ventricular system and basilar cisterns appear appropriate in size and configuration given the degree of parenchymal volume loss. Paranasal sinuses: There is mucoperiosteal thickening in the right maxillary sinus. Otherwise, the visualized paranasal sinuses appear clear. Mastoid air cells: The mastoid air cells appear well-aerated. Auditory system: The middle ear cavities appear clear. Orbital cavity: The globes and intraorbital structures appear grossly intact. Bones/joints: The bony calvarium appears intact. No depressed skull fracture is seen. There is hyperostosis frontalis interna. There is an old left medial orbital wall blowout fracture. There is rightward deviation of the nasal septum. Soft tissues: No gross focal scalp hematoma is seen. IMPRESSION: No acute intracranial hemorrhage or depressed skull fracture. Dictated and Authenticated by: Hunter Paniagua MD. Ordering:PARAS Dickinson MD
--- NOTE | 2020-10-13 22:19 | DI.VRAD_ITS ---
PROCEDURE INFORMATION: Exam: CTA Chest With Contrast Exam date and time: 10/13/2020 9:44 PM Age: 80 years old Clinical indication: Pain and injury or trauma; Fall; Blunt trauma (contusions or hematomas); Chest wall pain and right-sided; Injury date: 10/13/20; Injury details: Syncopal episode, right lower chest wall pain, rib pain; Prior surgery; Surgery date: 6+ months; Surgery type: Cholecystectomy, back surgery TECHNIQUE: Imaging protocol: Computed tomographic angiography of the chest with contrast. 3D rendering (Not supervised by radiologist): MIP and/or 3D reconstructed images were created by the technologist. Radiation optimization: All CT scans at this facility use at least one of these dose optimization techniques: automated exposure control; mA and/or kV adjustment per patient size (includes targeted exams where dose is matched to clinical indication); or iterative reconstruction. Contrast material: [id number]; Contrast volume: 100 ml; Contrast route: INTRAVENOUS (IV); COMPARISON: CR XR RIBS BI INCLUDE CHEST 03/02/2020 9:09 AM FINDINGS: Pulmonary arteries: Normal. No pulmonary emboli. Aorta: Unremarkable. No aortic aneurysm. No aortic dissection. Lungs: Unremarkable. No consolidation. No masses. Pleural spaces: Unremarkable. No pneumothorax. No pleural effusion. Heart: Coronary artery calcifications identified. Lymph nodes: Unremarkable. No enlarged lymph nodes. Gallbladder and bile ducts: Status post cholecystectomy. Stomach and bowel: There is a fat density focus that looks fairly elongated in the 3rd portion of the duodenum series 4, images 74-76. It measures approximately 0.6 by at least 2.7 cm. Suspect lipoma. Bones/joints: Unremarkable. No acute fracture. Soft tissues: Unremarkable. IMPRESSION: 1. No evidence for pulmonary embolus. 2. 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 3. No definite acute posttraumatic abnormality evident. Dictated and Authenticated by: Lia Ayala MD. Ordering:PARAS Dickinson MD
--- NOTE | 2020-10-13 23:25 | HPE_ITS ---
Date of service: 10/13/20 Time of Service: 23:26 Assessment and Plan Assessment and plan (1) Syncope and collapse determined by examination: Start date: 10/13/20 Status: Acute Assessment and plan: This is a 80-year-old gentleman who had a syncopal episode at home which was unprovoked with no evidence of seizure activity or postictal state. He had no focalizing neurological complaints before or after the event and he denies any visceral pain or anginal type symptoms but does have chest wall pain with breathing. His initial lab revealed slightly elevated creatinine with chronic stable anemia and macrocytosis. Cardiac monitoring overnight had revealed no dysrhythmias and patient's troponins have trended negative thus far. Continue to monitor with physical therapy to assess for mobility to ambulate safely to return home after observation. Further outpatient work-up can be sought for syncopal episode. This does not appear to be cardiovascular and there is no suggestion of neurological etiology. His mild anemia with macrocytosis need to be further investigated. He may have been slightly dry with his creatinine slightly elevated. Patient does live at home with his . He is a full code. (2) Acute chest wall pain: Start date: 10/13/20 Status: Acute Assessment and plan: No evidence of fractures with patient to have physical therapy evaluate for safe ambulation. He may be somewhat compromised with recent back surgery and core muscle strengthening may be needed long-term. (3) Low back pain: Status: Chronic Assessment and plan: Status post decompression of spinal stenosis and removal of hardware for spinal stimulator which was causing problem with left sciatica. This appears to be healing well and did not appear to be imaged by his fall. Follow-up clinically. Physical therapy evaluation. Core muscle strengthening is important for continued recovery. Qualifiers: Back pain laterality: midline Chronicity: chronic Sciatica presence: without sciatica Qualified Code(s): M54.5 - Low back pain; G89.29 - Other chronic pain (4) Type 2 diabetes mellitus: Status: Chronic Assessment and plan: Patient does have hyperglycemia with stress he may be prediabetic but is on no medical therapy as outpatient. Glucometers with short acting insulin coverage while hospitalized. Patient should eat a diabetic diet. Qualifiers: Diabetes mellitus complication status: without complication Diabetes mellitus nursing home insulin use: without nursing home use Qualified Code(s): E11.9 - Type 2 diabetes mellitus without complications History of Present Illness History of Present Illness Chief Complaint: Syncopal episode with injury to the chest wall Narrative: This is a 80-year-old male patient who recently had back surgery to remove a spinal stimulator which was causing left sciatica and had decompression of spinal stenosis in the lumbar region down 05/10/2020. He was walking down his ramp off his yard and feeling much better after having surgery with minimal pain. He states that things went black and he fell backward onto the lawn awakening just before he struck the ground protecting his head from hitting the ground. He denies any headache, nausea or vomiting but was having chest pain with breathing over the right more the left chest wall. In the ED he was evaluated and had no acute fractures or acute findings on scanning. Because of his shallow breathing and unknown reason for his syncope, he was observed on telemetry with trending of lab. When I saw the patient he was awake and remembered the event just before hitting the ground but had no prodrome prior to being going black. He does have a history of diabetes or prediabetic state and is on no medical therapy for this problem. Patient denies any cough or hemoptysis. He is comfortable lying still in bed. Does hurt his chest wall over the right more than left anteriorly when taking a deep breath. His shallow breathing. He had no focal neurological complaints. When he awakened he was not diaphoretic and had no incontinence of urine or stool and did not bite his tongue. Review of Systems Narrative: 13 point review of systems otherwise unrevealing or stable. FOR[facility] Medical History (Updated 10/14/20 @ 14:46 by Leonard Aguila) Actinic keratosis Acute chest wall pain Arthritis of right ankle Esophagitis, reflux History of IBS Hx of adenomatous colonic polyps Hx of head injury Hyperlipidemia Hypertension Lactose intolerance Low back pain Peripheral neuropathy Reflex sympathetic dystrophy of lower limb Right leg Renal cyst, congenital, right Retinal hemorrhage Rib pain Seborrheic dermatitis Sleep disturbances Syncope and collapse determined by examination Type 2 diabetes mellitus Surgical History S/P cataract extraction S/P cholecystectomy S/P hernia surgery S/P right knee surgery S/P skin cancer resection Family History Mother Diabetes Social History Smoking/Tobacco Use Status: Former Tobacco Use Smoking risk assessment performed?: Yes Alcohol Intake: never Drug use: Never Household members: spouse Housing: house Number of Children: 4 current occupation: Retired Pets and animals: Yes Pets and animals: cat(s) What is your relationship status?: Panel score (0-1 are the most socially isolated patients): 1 Seatbelt use: always Do you feel safe at home: Yes Do you feel safe in your relationship?: Yes Meds Allergies and Home Medications Allergies Allergy/AdvReac Type Severity Reaction Status Date / Time metformin Allergy Intermediate Verified 10/13/20 19:06 Priqidx-Hve-Vhk Reductase Allergy Intermediate Verified 10/13/20 19:06 Inhibitor AJKOB Inhibitors AdvReac Mild Unverified 10/13/20 19:06 TURKEY Allergy Mild Uncoded 10/13/20 19:06 Home Medications Medication Instructions Recorded Confirmed Type esomeprazole magnesium [Nexium] 20 mg PO DAILY 06/09/17 10/13/20 History hydrochlorothiazide 12.5 mg tablet 12.5 mg PO DAILY 04/08/20 10/13/20 History losartan 100 mg tablet 100 mg PO DAILY 04/08/20 10/13/20 History acetaminophen 500 mg tablet 500 mg PO Q6H PRN 04/09/20 10/13/20 History Exam Narrative Exam Narrative: General: Patient appears appropriate for age, moderately obese, alert and oriented to person and place at least. He is in no acute distress. He is lying flat in bed without discomfort. HEENT: Normocephalic, eyes with pupils equal and reactive to light symmetrically, extraocular movement intact and sclera anicteric. Oropharynx with moist mucosa. Neck: Supple without JVD. No carotid bruits. Back: Decreased lordotic curve, decreased range of motion with no CVA tenderness. Patient does have well-healed scar over lumbar spine. Lungs: Fair aeration with patient taking shallow breaths but no focalizing rales or rhonchi. Heart: Regular rate and rhythm with no murmurs or gallops appreciated. Chest: Tender to palpation of the anterior chest wall without crepitation or ecchymosis. Abdomen: Obese contour, soft and nontender to palpation with no palpable hepatosplenomegaly. Bowel sounds positive all quadrants. Genitalia/rectal: Exam deferred. Extremities: Without clubbing, cyanosis or pitting edema. Peripheral pulses grossly intact. Skin: Pale, warm and dry. Neuro: Cranial nerves II to XII grossly intact, no focalizing motor deficits. Psych: Depressed mood and flat affect with normal variation. No abnormal thought processes. Remote and recent memory appear to be grossly intact. Results Imaging Imaging Studies: Exam: CTA Chest With Contrast Exam date and time: 10/13/2020 9:44 PM Age: 80 years old Clinical indication: Pain and injury or trauma; Fall; Blunt trauma (contusions or hematomas); Chest wall pain and right-sided; Injury date: 10/13/20; Injury details: Syncopal episode, right lower chest wall pain, rib pain; Prior surgery; Surgery date: 6+ months; Surgery type: Cholecystectomy, back surgery TECHNIQUE: Imaging protocol: Computed tomographic angiography of the chest with contrast. 3D rendering (Not supervised by radiologist): MIP and/or 3D reconstructed images were created by the technologist. Radiation optimization: All CT scans at this facility use at least one of these dose optimization techniques: automated exposure control; mA and/or kV adjustment per patient size (includes targeted exams where dose is matched to clinical indication); or iterative reconstruction. Contrast material: [id number]; Contrast volume: 100 ml; Contrast route: INTRAVENOUS (IV); COMPARISON: CR XR RIBS BI INCLUDE CHEST 03/02/2020 9:09 AM FINDINGS: Pulmonary arteries: Normal. No pulmonary emboli. Aorta: Unremarkable. No aortic aneurysm. No aortic dissection. Lungs: Unremarkable. No consolidation. No masses. Pleural spaces: Unremarkable. No pneumothorax. No pleural effusion. Heart: Coronary artery calcifications identified. Lymph nodes: Unremarkable. No enlarged lymph nodes. Gallbladder and bile ducts: Status post cholecystectomy. Stomach and bowel: There is a fat density focus that looks fairly elongated in the 3rd portion of the duodenum series 4, images 74-76. It measures approximately 0.6 by at least 2.7 cm. Suspect lipoma. Bones/joints: Unremarkable. No acute fracture. Soft tissues: Unremarkable. IMPRESSION: 1. No evidence for pulmonary embolus. 2. 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 3. No definite acute posttraumatic abnormality evident. Exam: CT Head Without Contrast Exam date and time: 10/13/2020 7:54 PM Age: 80 years old Clinical indication: Injury or trauma; Fall; Blunt trauma (contusions or hematomas); Consciousness not specified; Injury date: 10/13/20 TECHNIQUE: Imaging protocol: Computed tomography of the head without contrast. Radiation optimization: All CT scans at this facility use at least one of these dose optimization techniques: automated exposure control; mA and/or kV adjustment per patient size (includes targeted exams where dose is matched to clinical indication); or iterative reconstruction. COMPARISON: CT HEAD WO 12/26/2017 1:16 PM FINDINGS: Brain: No acute intracranial hemorrhage, mass-effect, midline shift, or extra-axial collection is seen. The sahni white matter differentiation appears preserved. There is symmetric parenchymal volume loss. Cerebral ventricles: The ventricular system and basilar cisterns appear appropriate in size and configuration given the degree of parenchymal volume loss. Paranasal sinuses: There is mucoperiosteal thickening in the right maxillary sinus. Otherwise, the visualized paranasal sinuses appear clear. Mastoid air cells: The mastoid air cells appear well-aerated. Auditory system: The middle ear cavities appear clear. Orbital cavity: The globes and intraorbital structures appear grossly intact. Bones/joints: The bony calvarium appears intact. No depressed skull fracture is seen. There is hyperostosis frontalis interna. There is an old left medial orbital wall blowout fracture. There is rightward deviation of the nasal septum. Soft tissues: No gross focal scalp hematoma is seen. IMPRESSION: No acute intracranial hemorrhage or depressed skull fracture. Labs Result diagrams: 10/14/20 05:15 10/14/20 05:15 Labs: Laboratory Results - last 24 hr 10/13/20 10/13/20 10/13/20 19:13 19:13 19:13 WBC 9.89 RBC 3.72 L Hgb 12.2 L Hct 34.7 L MCV 93.3 MCH 32.8 MCHC 35.2 RDW 15.3 H Plt Count 200 MPV 10.4 Immature Gran % 0.4 Neutrophils % 76.3 Lymphocytes % 15.3 Monocytes % 6.9 Eosinophils % 1.0 Basophils % 0.1 Nucleated RBC % 0 Absolute Neutrophils 7.55 H Absolute Lymphocytes 1.51 Absolute Monocytes 0.68 Absolute Eosinophils 0.10 Absolute Basophils 0.01 PT 10.3 INR 1.0 APTT 23.2 Sodium 139 Potassium 3.6 Chloride 105 Carbon Dioxide 24.2 Anion Gap 9.8 BUN 16 Creatinine 1.1 Estimated GFR/1.73 m2 >= 60.00 Glucose 241 H Calcium 9.3 Magnesium 1.7 L Total Bilirubin 1.1 H AST 18 ALT 17 Alkaline Phosphatase 88 Troponin I < 0.05 Total Protein 7.2 Albumin 3.6 Last Vital Signs Temp 37 C 10/13/20 18:59 Pulse 72 10/13/20 23:15 Resp 14 10/13/20 23:20 BP 131/50 L 10/13/20 23:15 Pulse Ox 95 10/13/20 23:20
[2020-10-13 23:49] LABS: Troponin I < 0.05 ng/mL (<0.06)
[2020-10-13 23:59] LABS: Source Nasal/Nares
--- NOTE | 2020-10-13 23:59 | NUR.NOTE ---
2347-Report to [facility] Surg RNNursing Note:
[2020-10-14] VITALS (31 sets, daily range): BP systolic 99–154; BP diastolic 45–80; PULSE 70–95; RESP 8–19; TEMP 36–36.8; O2SAT 95–100
[2020-10-14 00:49] LABS: COVID-19 PCR Negative (Negative)
[2020-10-14] MEDS: MORPHine 4 MG/ML SYR IVP (01:24)
[2020-10-14] MEDS: MAGNESIUM SULFATE 2 GM/50 ML BAG IVPB (02:38)
[2020-10-14] MEDS: Normal Saline Flush 10 ML SYR IVP (02:38)
--- NOTE | 2020-10-14 03:34 | NUR.NOTE ---
0127-derek Riverasupervisor housecleaner transports patient to floorNursing Note:
--- NOTE | 2020-10-14 03:36 | NUR.NOTE ---
0054-covid swab obtained; transport to admit bed upon resultsNursing Note:
[2020-10-14 05:43] LABS: Troponin I < 0.05 ng/mL (<0.06)
[2020-10-14 05:49] LABS: TSH (W/Ref FT4) 3.53 uIU/mL (0.36-3.74)
[2020-10-14] MEDS: Heparin 5,000 UNITS/ML VIAL 5000 UNITS SC (06:21)
[2020-10-14] MEDS: Esomeprazole 20 MG CAPCR PO (08:35)
[2020-10-14] MEDS: Losartan 50 MG TAB PO (08:36)
[2020-10-14] MEDS: Acetaminophen 325 MG TAB 650 MG PO ×2 (08:36→16:01)
[2020-10-14] MEDS: hydroCHLOROthiazide 12.5 MG TAB PO (08:36)
[2020-10-14 08:47] LABS: Abs Immature Grans 0.01 10^3/uL (0.0-0.06); Absolute Basophil Count 0.02 10^3/uL (0.0-0.2); Absolute Lymphocyte Count 1.48 10^3/uL (1.2-3.4); Absolute Monocyte Count 0.62 10^3/uL (0.1-0.8); Absolute Neutrophil Count 5.26 10^3/uL (1.2-6.7); Basophils % 0.3; Eosinophils % 2.6; HCT 36.6 % (40.0-50.0); HGB 12.5 g/dL (13.5-17.5); Immature Grans % 0.1; Lymphocytes % 19.5; MCH 32.9 pg (27.0-33.0); MCHC 34.2 % (32.0-36.0); MCV 96.3 fL (80-95); MPV 10.2 fL (8.0-11.0); Monocytes % 8.2; Neutrophils % 69.3; Nucleated RBC 0 %; Platelet Count 207 10^3/uL (130-400); RDW 16.1 % (11.8-14.1); RDW-SD 57.1 fL; WBC 7.59 10^3/uL (4.4-10.8)
[2020-10-14 08:58] LABS: ALT 18 U/L (16-63); AST 11 U/L (15-37); Albumin 3.4 g/dL (3.4-5.0); Alkaline Phosphatase 88 U/L (46-116); Anion Gap 10.3 mmol/L (3-11); BUN 12 mg/dL (7-18); Bilirubin, Total 0.9 mg/dL (0.2-1.0); CO2 24.7 mmol/L (21.0-32.0); CREATININE 0.9 mg/dL (0.70-1.30); Calcium 8.8 mg/dL (8.5-10.1); Chloride 106 mmol/L (98-107); Glucose 152 mg/dL (74-106); Magnesium 2.3 mg/dL (1.8-2.4); Potassium 3.8 mmol/L (3.5-5.1); Sodium 141 mmol/L (136-145); Total Protein 7.1 g/dL (6.4-8.2)
--- NOTE | 2020-10-14 11:40 | IN_ITS ---
Date of service: 10/14/20 Time of Service: 11:40 PT Notes Visit Reasons: Syncope with Fall, Chest wall pain, HTN, NIDDM Physical Therapy Inpatient Initial Evaluation Date: 10/14/2020 Referring Doctor: Leonard Aguila MD PT Orders: PT CONSULT: Limited ability Precautions: Fall. Standard. Activity as tolerated. Patient Profile/Admitting Diagnosis: Aamir is a 80-year-old male who presented to the ED on 10/13/2020 due to a fainting episode that caused him to fall back onto the ground hitting his upper back first, right-sided chest wall pain, and severe discomfort with breathing. Patient is diagnosed with syncope and collapse, acute chest wall pain, low back pain, and type [address] of the head showed negative intracranial process or abnormality. PMHX: Medical History (Updated 10/14/20 @ 14:46 by Leonard Aguila) Actinic keratosis Acute chest wall pain Arthritis of right ankle Esophagitis, reflux History of IBS Hx of adenomatous colonic polyps Hx of head injury Hyperlipidemia Hypertension Lactose intolerance Low back pain Peripheral neuropathy Reflex sympathetic dystrophy of lower limb Right leg Renal cyst, congenital, right Retinal hemorrhage Rib pain Seborrheic dermatitis Sleep disturbances Syncope and collapse determined by examination Type 2 diabetes mellitus Surgical History S/P cataract extraction S/P cholecystectomy S/P hernia surgery S/P right knee surgery S/P skin cancer resection Social History/Home Situation: Lives with in a private home with a ramp to enter. Had been independent with all mobility ADL performance without the use of FWW. Equipment Owned/DME: FWW, SPC Subjective: States that he had fallen more than 12 times in the past 12 months prior to his surgery in August 2020. He has not been using his FWW about twoo weeks after this surgery, no PT services received after said surgery. Yesterday was so hot when he went walking and was not able to go far when he suddenly felt the dizzy spell and dropped to the ground. Today, he reports 8-9/10 pain in the upper back area limiting his ability to sit<>lie down as well as sit<>stand from the edge of bed. Once he is up, he does a lot better despite the pain as long as he has a walker. Denies any headache, dizziness, chest pain throughout session but did report upper back pain related to the fall that has been bothersome. Nurse updated and aware. States that he has been advised by his orthopedic surgeon back in August to walk as often as tolerated to maiatin his mobility level. Objective: General Observation: Completely healed surgical incision along the midline lumbar area and L gluteal area. Mental Status: Alert and oriented as to person, place, time, and purpose. Able to pay attention, focus, and respond appropriately. Pain: 5/10 in the upper back area due to the fall Vital Signs: WNL as closely monitored by nursing staff ROM: Right Upper Extremity: Shoulder Flexion WFL. Shoulder abduction WFL. Elbow flexion WFL. Wrist flexion WFL. Functional opening and closing of hand WFL. Left Upper Extremity: Shoulder Flexion WFL. Shoulder abduction WFL. Elbow flexion WFL. Wrist flexion WFL. Functional opening and closing of hand WFL. Right Lower Extremity: Hip flexion lacks the last 25% of AROM. Hip abduction WFL. Knee flexion WFL. Knee extension lacks the last 25% of AROMankle dorsiflexion WFL. Ankle plantarflexion WFL. Left Lower Extremity: Hip flexion lacks the last 25% of AROM. Hip abduction WFL. Knee flexion WFL. Knee extension lacks the last 25% of AROMankle dorsiflexion WFL. Ankle plantarflexion WFL. Strength: Right Upper Extremity: Shoulder flexors 4/5. Shoulder abductors 4/5. Elbow flexors 4/5. Elbow extensors 4/5. Ethics Manager strong. Left Upper Extremity: Shoulder flexors 4/5. Shoulder abductors 4/5. Elbow flexo rs 4/5. Elbow extensors 4/5. Ethics Manager strong. Right Lower Extremity: Hip flexors 3-/5. Hip abductors 4-/5. Knee flexors 3-/5. Knee extensors 3-/5. Ankle dorsiflexors 3+/5. Ankle plantarflexors 4-/5. Left Lower Extremity: Hip flexors 3-/5. Hip abductors 4-/5. Knee flexors 3-/5. Knee extensors 3-/5. Ankle dorsiflexors 3+/5. Ankle plantarflexors 4-/5. Bed Mobility/Transfers: Left side-lying to sit with contact guard assist with HOB at 45 Sit to left side-lying with minimal assist to BLE. Able to do so independently with less pain level and if given more time. Sit to stand with contact-guard assist Stand to sit with standby assist Bed to reclining chair with contact-guard assist Reclining chair to bed with contact-guard assist Gait: Instructed patient with level surface ambulation of 150 feet requiring standby assist assist. Step-through gait pattern. Reported 5/10 pain in the upper back area after activity. Denies headache, chest pain, and dizziness throughout. No LOB. No SOB. Balance: Static Sitting: Normal Dynamic Sitting: Good Static Standing: Fair Dynamic Standing: Fair Special Tests: Mobility Limitations Standardized Measure [facility] AM-PAC 6 clicks Basic Mobility Inpatient Short Form: Raw Score: 1827 CMS Score: 47% deficit Informed Consent/Education: Patient was instructed in purpose of PT consult. Assessment: Aamir now requires the use of front wheel walker for all mobility ADL performance to maximize independence and reduce fall risk at home. Able to independently perform bed mobility and transfers with modified independence if given enough time to do so to minimize pain. Agreeable to home health PT following through with services. No new report of fainting. Patient presents with clinical signs and symptoms consistent with current/admitting diagnoses that have resulted to mobility limitations, gait instability, generalized weakness, and overall ADL decline as demonstrated by the following impairment level findings: 1. Decreased strength to B hips and knees major muscle groups 2. Impaired sitting/standing balance 3. Impaired activity tolerance 4. Limitation of joint range of motion in low back 5. Pain in low back Impairments are contributing to the following functional limitations: 1. Decline in bed mobility skills 2. Decline in transfer skills 3. Difficulty with ambulation without assistive device 4. Increased completion time for mobility ADL performance 5. Increased risk for falls 6. Difficulty with managing steps alone safely Patient is assessed as a [id number] moderate complexity based on the following: History: 80-year-old male with past medical history as indicated above Examination: Demonstrable impairment in strength, balance, and mobility level with underlying impairments and functional limitations as exhibited above as well as deficit score of 47% utilizing the [facility] Mobility Inpatient Short Form Presentation: Stable Decision Makin moderate complexity Goals: Goals X1 week 1. Supine-Sit independent 2. Sit-Supine independent 3. Sit-Stand independent 4. Stand-Sit independent with FWW 5. Bed-Chair independent with FWW 6. Chair-Bed independent with FWW 7. Independent gait on level surface with use of FWW for at least 300 feet without report of pain nor dyspnea Plan of Care/Treatment Plan: 1-2x/day, 7 days/week x 1 week. Plan of care has been reviewed with the CHIP BIN OPERATOR providing the service under Physical Therapy direction. Initiate Physical Therapy intervention for pain management as needed, strengthening, bed mobility, transfers, gait, stairs, balance training, and use of assistive device. DISCHARGE RECOMMENDATIONS: Patient will benefit from home health PT services in order to progress mobility level using least restrictive assistive ambulatory device, assess home safety, identify additional equipment needs, and establish a functional maintenance program that will increase ability of patient to remain at home. TREATMENT CODE/TIME: 50990 x 20 minutes beginning at 11:40 AM. Thank you for the opportunity to participate in the care of this patient. Isabela Villalpando PT, DPT, CLT [facility] [place], [place]
--- NOTE | 2020-10-14 13:01 | PT.INDS ---
Date of service: 10/14/20 Time of Service: 13:01 PT Notes Visit Reasons: Syncope with Fall, Chest wall pain, HTN, NIDDM Physical Therapy Inpatient Discharge Summary Date: 10/14/2020 Dates of service: 10/14/2020 only Referring Doctor: Leonard Aguila MD PT Orders: PT CONSULT: Limited ability Precautions: Fall. Standard. Activity as tolerated. Patient Profile/Admitting Diagnosis: Aamir is a 80-year-old male who presented to the ED on 10/13/2020 due to a fainting episode that caused him to fall back onto the ground hitting his upper back first, right-sided chest wall pain, and severe discomfort with breathing. Patient is diagnosed with syncope and collapse, acute chest wall pain, low back pain, and type [address] of the head showed negative intracranial process or abnormality. PMHX: Medical History (Updated 10/14/20 @ 14:46 by Leonard Aguila) Actinic keratosis Acute chest wall pain Arthritis of right ankle Esophagitis, reflux History of IBS Hx of adenomatous colonic polyps Hx of head injury Hyperlipidemia Hypertension Lactose intolerance Low back pain Peripheral neuropathy Reflex sympathetic dystrophy of lower limb Right leg Renal cyst, congenital, right Retinal hemorrhage Rib pain Seborrheic dermatitis Sleep disturbances Syncope and collapse determined by examination Type 2 diabetes mellitus Surgical History S/P cataract extraction S/P cholecystectomy S/P hernia surgery S/P right knee surgery S/P skin cancer resection Social History/Home Situation: Lives with in a private home with a ramp to enter. Had been independent with all mobility ADL performance without the use of FWW. Equipment Owned/DME: FWW, SPC Subjective: States that he had fallen more than 12 times in the past 12 months prior to his surgery in August 2020. He has not been using his FWW about twoo weeks after this surgery, no PT services received after said surgery. Yesterday was so hot when he went walking and was not able to go far when he suddenly felt the dizzy spell and dropped to the ground. Today, he reports 8-9/10 pain in the upper back area limiting his ability to sit<>lie down as well as sit<>stand from the edge of bed. Once he is up, he does a lot better despite the pain as long as he has a walker. Denies any headache, dizziness, chest pain throughout session but did report upper back pain related to the fall that has been bothersome. Nurse updated and aware. States that he has been advised by his orthopedic surgeon back in August to walk as often as tolerated to maiatin his mobility level. Objective: General Observation: Completely healed surgical incision along the midline lumbar area and L gluteal area. Mental Status: Alert and oriented as to person, place, time, and purpose. Able to pay attention, focus, and respond appropriately. Pain: 4/10 in the upper back area due to the fall Vital Signs: WNL as closely monitored by nursing staff ROM: Right Upper Extremity: Shoulder Flexion WFL. Shoulder abduction WFL. Elbow flexion WFL. Wrist flexion WFL. Functional opening and closing of hand WFL. Left Upper Extremity: Shoulder Flexion WFL. Shoulder abduction WFL. Elbow flexion WFL. Wrist flexion WFL. Functional opening and closing of hand WFL. Right Lower Extremity: Hip flexion lacks the last 25% of AROM. Hip abduction WFL. Knee flexion WFL. Knee extension lacks the last 25% of AROMankle dorsiflexion WFL. Ankle plantarflexion WFL. Left Lower Extremity: Hip flexion lacks the last 25% of AROM. Hip abduction WFL. Knee flexion WFL. Knee extension lacks the last 25% of AROMankle dorsiflexion WFL. Ankle plantarflexion WFL. Strength: Right Upper Extremity: Shoulder flexors 4/5. Shoulder abductors 4/5. Elbow flexors 4/5. Elbow extensors 4/5. Welding Lead Burner strong. Left Upper Extremity: Shoulder flexors 4/5. Shoulder abductors 4/5. Elbow flexors 4/5. Elbow extensors 4/5. Welding Lead Burner strong. Right Lower Extremity: Hip flexors 3-/5. Hip abductors 4-/5. Knee flexors 3-/5. Knee extensors 3-/5. Ankle dorsiflexors 3+/5. Ankle plantarflexors 4-/5. Left Lower Extremity: Hip flexors 3-/5. Hip abductors 4-/5. Knee flexors 3-/5. Knee extensors 3-/5. Ankle dorsiflexors 3+/5. Ankle plantarflexors 4-/5. Bed Mobility/Transfers: Left side-lying to sit with contact guard assist with HOB at 45 Sit to left side-lying with minimal assist to BLE. Able to do so independently with less pain level and if given more time. Sit to stand with contact-guard assist Stand to sit with standby assist Bed to reclining chair with contact-guard assist Reclining chair to bed with contact-guard assist Gait: Instructed patient with level surface ambulation of 150 feet requiring standby assist assist. Step-through gait pattern. Reported 5/10 pain in the upper back area after activity. Denies headache, chest pain, and dizziness throughout. No LOB. No SOB. Balance: Static Sitting: Normal Dynamic Sitting: Good Static Standing: Fair Dynamic Standing: Fair Assessment: Aamir now requires the use of front wheel walker for all mobility ADL performance to maximize independence and reduce fall risk at home. Able to independently perform bed mobility and transfers with modified independence if given enough time to do so to minimize pain. Agreeable to home health PT following through with services. No new report of fainting spells. Patient presents with clinical signs and symptoms consistent with current/admitting diagnoses that have resulted to mobility limitations, gait instability, generalized weakness, and overall ADL decline as demonstrated by the following impairment level findings: 1. Decreased strength to B hips and knees major muscle groups 2. Impaired sitting/standing balance 3. Impaired activity tolerance 4. Limitation of joint range of motion in low back 5. Pain in low back Impairments are contributing to the following functional limitations: 1. Decline in bed mobility skills 2. Decline in transfer skills 3. Difficulty with ambulation without assistive device 4. Increased completion time for mobility ADL performance 5. Increased risk for falls 6. Difficulty with managing steps alone safely Goals: Goals X1 week 1. Supine-Sit independent NOT MET 2. Sit-Supine independent NOT MET 3. Sit-Stand independent NOT MET 4. Stand-Sit independent with FWW NOT MET 5. Bed-Chair independent with FWW NOT MET 6. Chair-Bed independent with FWW NOT MET 7. Independent gait on level surface with use of FWW for at least 300 feet without report of pain nor dyspnea NOT MET DISCHARGE RECOMMENDATIONS: Patient will benefit from home health PT services in order to progress mobility level using least restrictive assistive ambulatory device, assess home safety, identify additional equipment needs, and establish a functional maintenance program that will increase ability of patient to remain at home. TREATMENT CODE/TIME: 71826 x 23 minutes beginning at 13:01 PM. Thank you for the opportunity to participate in the care of this patient. Isabela Villalpando PT, DPT, CLT [facility] [place], [place]
[2020-10-14] MEDS: Insulin Aspart 300 UNITS/3 ML PEN SC (13:12)
--- NOTE | 2020-10-14 15:11 | W.PM.DS.N ---
Date of service: 10/14/20 Time of Service: 15:11 DS: Diagnosis Discharge Diagnosis (1) Syncope and collapse determined by examination: Status: Acute (2) Acute chest wall pain: Status: Acute (3) Low back pain: Status: Chronic (4) Type 2 diabetes mellitus: Status: Chronic Discharge Plan Disposition Patient Disposition: HOME W/HOME HEALTH SERVICE Condition: Stable Discharge Details Reason For Visit: Syncope with Fall, Chest wall pain, HTN, NIDDM Admit Date/Time: 10/13/20 23:16 Admit Provider: Leonard Aguila Attending Provider: Leonard Aguila Primary Care Provider: Miguel A Varner Hospital Course Hospital Course: This is a 80-year-old gentleman who had a syncopal episode at home which was unprovoked with no evidence of seizure activity or postictal state. He had no focalizing neurological complaints before or after the event and he denies any visceral pain or anginal type symptoms but does have chest wall pain with breathing. His initial lab revealed slightly elevated creatinine with chronic stable anemia and macrocytosis. Cardiac monitoring overnight had revealed no dysrhythmias and patient's troponins have trended negative. An echocardiogram shows EF 58% with no wall motion abnormality and no significant valvuar disease. He is evaluated with physical therapy and recommendations for home health PT have been placed. He did have orthostatic vital signs taken with no symptoms. blood pressure systolic dropped from 127 to 99 sitting but standing back to 109, heart rate was 78 lying, 84 sitting and 95 standing. he denied any symptoms of lightheadedness or dizziness or any symptoms. I do feel its reasonable to cut his losartan dose in half and monitor blood pressures outpatient. He ambulated well and PT cleared for discharge with home health PT. He will be discharged with a cardiac event recorder and follow up with pcp. discharge discussed with Dr Gibson Home Meds and New Rx's Prescriptions: Continued acetaminophen [Tylenol Extra Strength] 500 mg tablet 500 mg PO Q6H PRNRF: 0 hydrochlorothiazide 12.5 mg tablet 12.5 mg PO DAILY RF: 0 esomeprazole magnesium [Nexium] 20 MG capsule,delayed release(DR/EC) 20 mg PO DAILY RF: 0 Changed losartan 100 mg tablet 50 mg PO DAILY Qty: 0 RF: 0 Discharge Instructions Instructions: Syncope (DC) Additional Instructions: your work up has shown no explanation for you passing out. there has been no serious injury found on exam and radiology studies. echocardiogram shows EF of 58% with no wall motion abnormalities or significant valvular disease. you have remained normal sinus rhythm on telemetry. although you did not have symptoms with your orthostatic vital signs it is reasonable to reduce your blood pressure medication by half at this time and monitor blood pressure 3 times weekly and bring readings to your follow up appointment for further recommendations. Referrals: Miguel A Varner MD [Primary Care Provider] - Activity:: Activity as Tolerated Equipment/Supplies:: No Equipment Needed Diet:: As Tolerated Discharge Orders Discharge Orders: Discharge Order (Routine); Ordered 10/14/20 Ordered By: Cecilia Scanlon Other Ambulatory Orders: Cardiac Event Recorder (Routine) Timeframe: [id number] Facility: [facility] - Location: Respiratory Therapy Ordered By: Cecilia Scanlon DS: Summary Time Spent with Patient providing and/or coordinating discharge services: Greater than 30 minutes Status at Discharge Functional status at discharge: independent ambulation Overall status at discharge: patient is progressing back to baseline Mental Status: mental status grossly normal Speech and Movement: speech and movement normal Mood: congruent mood Affect: normal affect Exam Const General: cooperative, healthy appearing (younger appearing than stated age), comfortable and no acute distress Nutritional Appearance: average body habitus Orientation: alert, awake and oriented x3 HENMT Head: normal to inspection, normocephalic and atraumatic Mouth: oral mucosae normal Resp Effort & Inspection: normal respiratory effort Auscultation: clear to auscultation bilaterally Cardio Rate: regular rate Rhythm: regular rhythm GI Inspection: normal to inspection Palpation: soft Auscultation: normal bowel sounds Skin Rashes: no rashes Neuro General: patient alert, patient awake, patient oriented x3 and no focal motor deficits Extrem General: normal to inspection and full ROM Psych Mental Status: mental status grossly normal Speech and Movement: speech and movement normal Mood: congruent mood Affect: normal affect DS: Data Vitals/I&O Vitals and I&O: Vital Signs Temperature 36.6 C 10/14/20 14:17 Temperature Source Tympanic 10/14/20 14:17 Pulse 88 10/14/20 14:17 Pulse Rhythm Regular 10/14/20 07:30 Pulse 79 10/14/20 02:30 Respiratory Rate 16 10/14/20 14:17 Respiratory Effort Non-Labored 10/14/20 07:30 Respiratory Depth Normal 10/14/20 07:30 Respiratory Pattern Normal 10/14/20 07:30 Blood Pressure 137/77 10/14/20 14:17 Blood Pressure Mean 78 10/14/20 01:38 Blood Pressure Position Supine 10/13/20 18:59 Pulse Oximetry 97 10/14/20 14:17 Oxygen Delivery Method Room Air 10/14/20 14:17 Oxygen Flow Rate 0 10/14/20 14:17 Pain Level 8 10/14/20 14:17 Intake & Output 10/13/20 10/14/20 10/14/20 23:59 11:59 23:59 Intake Total 1000 / 1000 1420 / 1660 240 / 1660 Output Total 200 / 200 399 / 399 Balance 800 / 800 1021 / 1261 240 / 1261 Weight 88.451 kg 91.8 kg Intake: IV 1000 / 1000 1000 / 1000 Oral 420 / 660 240 / 660 Output: Urine 200 / 200 399 / 399 Other: Urine Color Light Nenita Urine Appearance Clear Voiding Methods Urinal Data Completed and Pending Labs on day of discharge: Labs from last 24 hours 10/14/20 10/14/20 10/14/20 05:15 05:15 05:15 WBC 7.59 RBC 3.80 L Hgb 12.5 L Hct 36.6 L MCV 96.3 H D MCH 32.9 MCHC 34.2 RDW 16.1 H Plt Count 207 MPV 10.2 Immature Gran % 0.1 Neutrophils % 69.3 Lymphocytes % 19.5 Monocytes % 8.2 Eosinophils % 2.6 Basophils % 0.3 Nucleated RBC % 0 Absolute Neutrophils 5.26 Absolute Lymphocytes 1.48 Absolute Monocytes 0.62 Absolute Eosinophils 0.20 Absolute Basophils 0.02 PT INR APTT Sodium 141 Potassium 3.8 Chloride 106 Carbon Dioxide 24.7 Anion Gap 10.3 BUN 12 Creatinine 0.9 Estimated GFR/1.73 m2 >= 60.00 Glucose 152 H D Calcium 8.8 Magnesium 2.3 Total Bilirubin 0.9 AST 11 L ALT 18 Alkaline Phosphatase 88 Troponin I < 0.05 Total Protein 7.1 Albumin 3.4 TSH COVID-19 Source SARS-CoV-2 (PCR) 10/14/20 10/13/20 10/13/20 05:15 23:14 23:07 WBC RBC Hgb Hct MCV MCH MCHC RDW Plt Count MPV Immature Gran % Neutrophils % Lymphocytes % Monocytes % Eosinophils % Basophils % Nucleated RBC % Absolute Neutrophils Absolute Lymphocytes Absolute Monocytes Absolute Eosinophils Absolute Basophils PT INR APTT Sodium Potassium Chloride Carbon Dioxide Anion Gap BUN Creatinine Estimated GFR/1.73 m2 Glucose Calcium Magnesium Total Bilirubin AST ALT Alkaline Phosphatase Troponin I Cancelled < 0.05 Total Protein Albumin TSH 3.53 COVID-19 Source Nasal/Nares SARS-CoV-2 (PCR) Negative 10/13/20 10/13/20 10/13/20 19:13 19:13 19:13 WBC 9.89 RBC 3.72 L Hgb 12.2 L Hct 34.7 L MCV 93.3 MCH 32.8 MCHC 35.2 RDW 15.3 H Plt Count 200 MPV 10.4 Immature Gran % 0.4 Neutrophils % 76.3 Lymphocytes % 15.3 Monocytes % 6.9 Eosinophils % 1.0 Basophils % 0.1 Nucleated RBC % 0 Absolute Neutrophils 7.55 H Absolute Lymphocytes 1.51 Absolute Monocytes 0.68 Absolute Eosinophils 0.10 Absolute Basophils 0.01 PT 10.3 INR 1.0 APTT 23.2 Sodium 139 Potassium 3.6 Chloride 105 Carbon Dioxide 24.2 Anion Gap 9.8 BUN 16 Creatinine 1.1 Estimated GFR/1.73 m2 >= 60.00 Glucose 241 H Calcium 9.3 Magnesium 1.7 L Total Bilirubin 1.1 H AST 18 ALT 17 Alkaline Phosphatase 88 Troponin I < 0.05 Total Protein 7.2 Albumin 3.6 TSH COVID-19 Source SARS-CoV-2 (PCR) [facility] Medical History (Updated 10/14/20 @ 14:46 by Leonard Aguila) Actinic keratosis Acute chest wall pain Arthritis of right ankle Esophagitis, reflux History of IBS Hx of adenomatous colonic polyps Hx of head injury Hyperlipidemia Hypertension Lactose intolerance Low back pain Peripheral neuropathy Reflex sympathetic dystrophy of lower limb Right leg Renal cyst, congenital, right Retinal hemorrhage Rib pain Seborrheic dermatitis Sleep disturbances Syncope and collapse determined by examination Type 2 diabetes mellitus Surgical History S/P cataract extraction S/P cholecystectomy S/P hernia surgery S/P right knee surgery S/P skin cancer resection Family History Mother Diabetes Social History Smoking/Tobacco Use Status: Former Tobacco Use Smoking risk assessment performed?: Yes Alcohol Intake: never Drug use: Never Household members: spouse Housing: house Number of Children: 4 current occupation: Retired Pets and animals: Yes Pets and animals: cat(s) What is your relationship status?: Panel score (0-1 are the most socially isolated patients): 1 Seatbelt use: always Do you feel safe at home: Yes Do you feel safe in your relationship?: Yes
--- NOTE | 2020-10-14 15:35 | PDOC.HHF2F_ITS ---
Home Health Certification Home Health Certification: 1. Encounter Date and Reason I certify that Aamir Parsons was seen by Cecilia Scanlon on 10/14/20 and that I had a [id number] encounter with this patient that meets the physician face to face encounter requirements. 2. Clinical Findings Supporting Skilled Need and Homebound Status I certify that home health services are medically necessary, include either intermittent mcfp and/or physical/speech therapy, and that this patient is homebound in that absences from the home require considerable and taxing effort and are infrequent or of short duration, or are attributable to the need to receive medical care. [X] (a) Attached documentation from encounter provides clinical findings supporting skilled need and homebound status (including what assistance patient requires to leave the home). The encounter with the patient was in whole, or in part, for the following medical condition, which is the primary reason for home health care: Syncope with Fall, Chest wall pain, HTN, NIDDM, recent back surgery Physical Therapy: routine evaluation and treatment Homebound: patient is unable to safely leave the house unassisted d/t generalized weakness. 3. Certification and Authentication I certify that I composed the above information based on my clinical judgment relating to this patient's medical condition and, if applicable, clinical findings communicated to me by the NPP or inpatient physician who performed the Home Health Referral. All further orders will be obtained through Miguel A Varner MD_(Community Based Physician - PCP)
--- NOTE | 2020-10-14 16:30 | HOLTER_ITS ---
APPROVED REPORT Conclusion This is a 48-hour monitor ordered for indication of syncope. The patient was in normal sinus rhythm for the majority of the recording with an average heart rate o f 82 bpm. There were no episodes of ventricular tachycardia nor any episodes of supraventricular tachycardia There were very rare PACs/PVCs. There were no episodes of atrial fibrillation, no pauses greater than 3 seconds and no evidence of hi gh degree heart block. There were no patient triggered events.
--- NOTE | 2020-10-14 18:19 | CMPROGNOTE_ITS ---
- If Service Date Differs Date of service: 10/14/20 Time of Service: 18:19 Care Management Progress Note CM notified that Aamir was being discharged and home health PT ordered. CM notified [facility].
== END 2020-10-14 17:12 | disposition home health service (06) ==
LOC: ER 23:59 → MS 10-14 00:05
PROVIDERS: Admitting Provider Family Medicine; Emergency Provider Physician Assistant; PCP Internal Medicine; Visit Provider Family Medicine
DX: R55 Syncope and collapse (principal); R07.89 Other chest pain; E11.9 Type 2 diabetes mellitus without complications; G89.29 Other chronic pain; D75.89 Other specified diseases of blood and blood-forming organs; D64.9 Anemia, unspecified; M54.5 Low back pain; W18.39XA Other fall on same level, initial encounter; K21.00 Gastro-esophageal reflux disease with esophagitis, without bleeding; E78.5 Hyperlipidemia, unspecified; I10 Essential (primary) hypertension; E11.42 Type 2 diabetes mellitus with diabetic polyneuropathy; G90.521 Complex regional pain syndrome I of right lower limb; Z87.891 Personal history of nicotine dependence
CPT/HCPCS: 36415; 71275; 80053; 87635; 93005; 96361; 96374; 96375; 97162; 97530; 99285; 70450; 83735; 84443; 84484; 85025; 85610; 85730; 93010; 93225; 93306; 99217; 99220; G0378; J1644; J2270; J3490

== ENCOUNTER 2020-10-19 14:08 | Outpatient (RCR) | payer MEDICARE, SELFPAY | END 2020-11-03 23:59 | LOC: RT 14:08 | PROVIDERS: PCP Internal Medicine; Visit Provider Nurse Practitioner Acute Care | DX: R55 Syncope and collapse (principal) | CPT/HCPCS: 93227; 93226 ==

== ENCOUNTER 2021-01-25 01:31 | Outpatient (CLI) | payer MEDICARE, SELFPAY ==
--- NOTE | 2021-01-25 14:30 | DI.RAD_ITS ---
Exam(s) XR THORACIC SPINE COMPLETE EXAM: XR THORACIC SPINE COMPLETE CLINICAL HISTORY: THORACIC REGION BACK PAIN M54.6. TECHNIQUE: 2D digital imaging was performed. COMPARISON: CR XR thoracic spine complete from 07/02/[address] CHEST PE CTA from 10/13/2020 FINDINGS: [id number] dextroscoliosis. No visible compression fractures. Prominent endplate osteophytes mid thoracic level. Extensive Syndesmophyte formation. Surgical clips right upper quadrant. Visual ized portions of the lungs clear. Heart size within normal limits for projection. IMPRESSION: Extensive syndesmophyte formation. No significant change 2018 . DATA REPOSITORY: RADIATION DOSE DELIVERED:
== END 2021-01-25 01:51 ==
PROVIDERS: PCP Internal Medicine; Visit Provider Internal Medicine
DX: M54.6 Pain in thoracic spine (principal); M25.78 Osteophyte, vertebrae; M41.84 Other forms of scoliosis, thoracic region
CPT/HCPCS: 72072

== ENCOUNTER → 2021-02-23 12:15 | Outpatient (BNVA) | payer MEDICARE, SELFPAY | PROVIDERS: PCP Internal Medicine; Referring Provider Internal Medicine; Visit Provider Psychiatry & Neurology Neurology | DX: E11.42 Type 2 diabetes mellitus with diabetic polyneuropathy (principal); G95.9 Disease of spinal cord, unspecified; M54.12 Radiculopathy, cervical region; M54.14 Radiculopathy, thoracic region; I10 Essential (primary) hypertension | CPT/HCPCS: 99214 ==

== ENCOUNTER 2021-03-04 02:33 | Outpatient (CLI) | payer MEDICARE, SELFPAY ==
--- NOTE | 2021-03-04 15:12 | DI.MRI_ITS ---
Exam(s) MR CERVICAL SPINE WO EXAM: MR CERVICAL SPINE WO CLINICAL HISTORY: T4-6 radicular sx but also bilateral hand numbness, M54.12, G95.9 TECHNIQUE: Multiplanar multisequence MRI of the cervical spine was performed without intravenous con trast. COMPARISON: No exams were available for comparison FINDINGS: CERVICOMEDULLARY JUNCTION: Intact with no evidence of cerebellar tonsillar ectopia. No obvious abnor mality of the odontoid process. No evidence of Chiari 1 malformation. CERVICAL SPINAL CORD: There is no abnormal signal in the cervical spinal cord and no evidence of foca l cord atrophy nor focal cord swelling. OSSEOUS:There are no cervical fractures evident. No significant osseous lesions in the cervical vert ebrae. INDIVIDUAL LEVELS: C2-3: Normal disc height and signal. Mild central subligamentous annular bulging without a dominant disc herniation. No central canal stenosis. No foraminal stenosis. No facet arthropathy at this le fredy. C3-4: Normal disc height and signal. No disc herniation. No central canal stenosis.Mild left-sided facet arthropathy. Right facet unremarkable. No foraminal stenosis. C4-5: Anterior osseous lipping but relatively preserved disc height. Mild posterior annular bulging but without a prominent disc herniation. Central canal dimensions are lower normal. Mild mid a mole facet degenerative changes. No significant foraminal stenosis. C5-6: Moderate disc space narrowing. There is annular bulging at this level which most prominent pos terolateral right. No large disc herniation. Annular bulging slightly flattens the anterior aspect of the thecal sac. Central canal dimensions are lower normal. There are mild degenerative changes i n of the mild-moderate degenerative changes in the left facet joint with mild foraminal stenosis. Ri ght facet joint unremarkable. No foraminal stenosis on the right side. C6-7: This level exhibits advanced disc space narrowing. There is broad annular bulging at this leve l which flattens the anterior aspect of thecal sac but does not indent the cord. Moderate degenerati ve changes in both facet joints. Mild bilateral foraminal stenosis. C7-T1: No disc herniation nor central canal stenosis. No facet arthropathy.No foraminal stenosis. IMPRESSION: 1. Although there is no dominant disc herniation nor prominent central canal stenosis, there findings at C 4-5, C5-6, and C6-7 levels as described above. 2. Mild asymmetric facet arthropathy as described above. 3. No prominent signal abnormality evident in the cervical cord and no evidence of cord atrophy nor f ocal cord swelling. DATA REPOSITORY:
--- NOTE | 2021-03-04 15:12 | DI.MRI_ITS ---
Exam(s) MR THORACIC SPINE WO EXAM: MR THORACIC SPINE WO CLINICAL HISTORY: T4-6 radicular sx but also bilateral hand numbness, M54.14, G95.9 TECHNIQUE: Multiplanar multisequence MRI of the thoracic spine was performed without intravenous con trast. COMPARISON: CR XR thoracic spine complete from 07/02/[address] SACRUM AND COCCYX WO from 04/06/[address] CHEST PE CTA from 10/13/[address] CHEST PE CTA from 10/13/2020 FINDINGS: OSSEOUS: There is thoracic scoliosis convex right. No prominent kyphosis. Anterior osteophytes noted at T7-T 8 level There are no acute appearing thoracic vertebral fractures. There are no ominous osseous lesions in t he thoracic vertebrae. There is flowing calcification noted within the anterior longitudinal ligamen t. THORACIC SPINAL CORD: There is no abnormal signal in the cervical spinal cord and no evidence of foca l cord atrophy nor focal cord swelling. There is no evidence of syringomyelia nor significant spinal cord dysraphism. There is no evidence of mass at the conus medullaris. The position of the conus me dullaris is at the level below the field of view of this study which is L1. SIGNIFICANT INDIVIDUAL LEVEL FINDINGS: There is mild annular bulging left of center at T7-T8 level which indents the thecal sac. There is, however, no tight spinal canal stenosis at this level. There is also no evidence of significant fora deidre stenosis in the thoracic spinal column. PARASPINAL TISSUES: No significant masses nor fluid collections evident. IMPRESSION: 1. Mild-moderate thoracic scoliosis convex right. No compression fractures nor listhesis. 2. No prominent disc herniations. No prominent central canal stenosis nor foraminal stenosis. 3. Incidentally noted is intraosseous hemangioma in right-side of the L1 vertebral body. DATA REPOSITORY:
== END 2021-03-04 02:53 ==
PROVIDERS: PCP Internal Medicine; Visit Provider Psychiatry & Neurology Neurology
DX: M54.14 Radiculopathy, thoracic region (principal); R20.2 Paresthesia of skin; M41.34 Thoracogenic scoliosis, thoracic region; M25.78 Osteophyte, vertebrae; M50.322 Other cervical disc degeneration at C5-C6 level; M50.323 Other cervical disc degeneration at C6-C7 level; M54.12 Radiculopathy, cervical region
CPT/HCPCS: 72141; 72146

== ENCOUNTER → 2021-03-30 10:42 | Outpatient (BNVA) | payer MEDICARE, SELFPAY | PROVIDERS: PCP Internal Medicine; Referring Provider Internal Medicine; Visit Provider Psychiatry & Neurology Neurology | DX: E11.42 Type 2 diabetes mellitus with diabetic polyneuropathy (principal); G56.03 Carpal tunnel syndrome, bilateral upper limbs; G56.23 Lesion of ulnar nerve, bilateral upper limbs; R06.02 Shortness of breath | CPT/HCPCS: 95886; 95910; 99214 ==

== ENCOUNTER 2021-05-14 12:39 | Outpatient (REF) | payer MEDICARE, SELFPAY ==
--- NOTE | 2021-05-14 10:20 | SKI_PTH ---
PATIENT: Aamir Parsons LOC: [facility] U#:[id number] AGE/SX: 80/M ROOM: RE05/14/[address]: Avni Marin DO : 1940 BED: DIS: 05/14/2021 SPEC #: [id number] RECD: 05/17/21 12:39 STATUS: FRANSICO REQ #: [id number] RODNEY: 05/14/21 10:[address]: Avni Marin DEPT: Surgical Specimen RECD BY: Damaris Ambrocio ENTERED: 05/17/21 12:40 SP TYPE: SKI OTHR DR: Miguel A Varner Tissues: 1 - SKIN BIOPSY(SHAVE/PUNCH) 2 - SKIN BIOPSY(SHAVE/PUNCH) Procedures: IMMUNOPEROXIDASE STAIN SKIN LEVEL 4 Comments: [id number]
--- OUTSIDE RECORDS SUMMARY | 2021-05-14 12:53 | XMS_ITS ---
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 Problem Malfunction of T85.192S Active 28678 1009 spinal cord stimulator, sequela Problem Paraparesis G82.20 Active 1448577 Problem Basal cell C44.219 Active carcinoma (BCC) of left ear Problem Cancer of the C44.91 Active 024642 007 skin, basal cell Problem History of basal Z85.828 Active 428 594551 cell cancer Problem Idiopathic G60.9 Active 90786141 peripheral neuropathy ALLERGIES Substance Reaction Event Type Date Status Metformin HCl Unknown Drug Allergy May, Active angel inhibitors Unknown Non Drug Allergy May, Active statins Unknown Non Drug Allergy May, Active turkey Unknown Non Drug Allergy May, Active ENCOUNTERS Encounter Location Date Diagnosis [address], May, [place] of unspecified [facility] [address] be havior of bone, [place] tissue, and skin D49.2 ; [id number] History of basal cell cancer Z85.828 a nd Actinic keratosi s L57.0 [facility] [address] [facility] Oct, [address] [place], [place] [id number] [facility] [address] [facility] Oct, Sta tus post lumbar [address] laminectomy Z98. 890 [place], [place] [id number] [facility] [address] [facility] 11 Oct, [address] [place], [place] [id number] [facility] [address] [facility] Aug, [address] [place], [place] [id number] [facility] [address] [facility] 15 Aug, [address] atus post lumbar [address] laminectomy Z98. 890 [place], [place] [id number] [facility] [address] [facility] Aug, [address] [place], [place] [id number] [facility] [address] [facility] Aug, Spi nal stenosis, lumbar Road [address] region with neur ogenic [place], [place] claudication M48 .062 ; [id number] Paraparesis G82. 20 and Malfunction of s heidy cord stimulator, sequela T85.192S [facility] [address] [facility] July, [address] [place], [place] [id number] [facility] [address] [facility] July, [address] [place] [id number] [facility] [address] [facility] Jun, Road [address] [place] [id number] [facility] [address] [facility] Jun, [address] [place] [id number] [facility] [address] [facility] Jun, [address] [place], [place] [id number] [facility] [address] [facility] Jun, [address] [place], [place] [id number] [facility] [address] [facility] Jun, Rad iculopathy, lumbar Road [address] region M54.16 ; Spinal [place], [place] stenosis, lumbar region [id number] without neurogen ic claudication M48 .061 ; Idiopathic perip heral neuropathy G60.9 and Malfunction of s heidy cord stimulator, subsequent encou nter T85.192D [facility] [address] [facility] May, [address] [place], [place] [id number] [address] 17 May, [address] [place], [place] [id number] [address] 10 May, [address] [place], [place] [id number] [address] May, We akness of left lower [address] extremity R29.89 8 and [place], [place] Foot drop, left M21.[id number] May, [address] [place], [place] [id number] [address] May, Fo ot drop, left M21.[address] and Left leg wea kness [place], [place] R29.898 [id number] [facility] [address] [place] [address] Apr, [address] [place], [place] [id number] [address], Apr, [place] [facility] [address] be havior of bone, soft [place], [place] tissue, and skin D49.2 ; [id number] Basal cell carci noma (BCC) of right e ar C44.212 ; Basal cell carcinoma (BCC) of left ear C44.219 ; Ca ncer of the skin, basal cell C44.91 ; Actinic keratosis L57.0 and Basal cell carci noma (BCC) of skin of upper extremity includ ing shoulder, unspec ified laterality C44.[address] Feb, Basal cell carcinoma Otolaryngology [address] [place], (BCC) of rig [place]t ear [place] [id number] C44.[address] 02 Feb, 2020 Neoplasm o f unspecified Otolaryngology [address] [place], behavior of bone, soft [place] [id number] tissue, and skin D49.[address] Jan, Neoplasm o f unspecified Otolaryngology [address] [place], behavior of bone, soft [place] [id number] tissue, and skin D49.2 ; Basal cell carci noma (BCC) of skin of upper extremity includ ing shoulder, unspec ified laterality C44.6 11 and Actinic keratosi s L57.0 IMMUNIZATIONS No Known Immunizations SOCIAL HISTORY Qualifiers Date Former Smoker REASON FOR REFERRAL FUNCTIONAL STATUS PLAN OF CARE Activity Details Follow Up prn,, 1 Year Reason:calling pathology results Future Appointment Provider Name:Avni lay, 2022-05-13 10:15:00 AM, [address] [facility], [address], [place], [place], [id number], VITAL SIGNS Height 5 ft 10 in in 2020-10-27 Height 5 ft 10 in in 2020-08-18 Height 5 ft 10 in in 2020-08-04 Height 5 ft 10 in in 2020-06-09 Height 5 ft 10 in in 2020-05-06 Height 5 ft 10 in in 2020-04-20 Height 5 ft 10 in in 2020-02-11 Height 5 ft 10 in in 2020-01-14 Weight 203.2 lbs 2020-10-27 Weight 205 lb 8 oz lbs 2020-08-18 Weight 206 lbs 2020-08-04 Weight 198 lbs 2020-06-09 Weight 209 lbs 2020-05-06 Weight 209 lbs 2020-04-20 Weight 216 lbs 2020-02-11 Weight 216 lbs 2020-01-14 Heart Rate 66 /min 2020-10-27 Heart Rate 93 /min 2020-08-18 Heart Rate 72 /min 2020-08-04 Heart Rate 95 /min 2020-06-09 Heart Rate 90 /min 2020-05-06 Heart Rate 71 /min 2020-02-11 Oximetry 96 2020-10-27 Oximetry 95 2020-08-18 Oximetry 98 2020-08-04 Oximetry 98 2020-06-09 Oximetry 98 2020-05-06 Respiratory Rate 18 /min 2020-05-06 BMI 29.15 kg/m2 2020-10-27 BMI 29.48 kg/m2 2020-08-18 BMI 29.55 kg/m2 2020-08-04 BMI 28.41 kg/m2 2020-06-09 BMI 29.99 kg/m2 2020-05-06 BMI 29.99 kg/m2 2020-04-20 BMI 30.99 kg/m2 2020-02-11 BMI 30.99 kg/m2 2020-01-14 Blood pressure systolic 110 mm Hg 2020-10-27 Blood pressure diastolic 58 mm Hg 2020-10-27 MEDICATIONS Medication Instructions Dosage Frequency Start End Duration Statu s Date Date hydroCHLOROthiazide TAKE 1 90 Acti ve 12.5 MG TABLET BY MOUTH EVERY DAY Glimepiride 1 MG TAKE 1 90 Active TABLET BY MOUTH EVERY DAY NexIUM Active traMADol HCl 50 MG (Schedule 20 Not -Taki IV Drug) ng TAKE 1 TO 2 TABLETS BY MOUTH TWICE DAILY FOR 20 DAYS NEEDED Losartan Potassium 50 TAKE 1 Ac tive MG TABLET BY MOUTH EVERY DAY Gabapentin 600 MG Orally 4 times 1 capsule 6h Active a day PROCEDURES Procedure Date Ordered Result Body Site SHAVE TRUNK/EXT <.5CM May 14, 2021 SHAVE FACE 1.1-2 CM Jan 14, 2020 SHAVE FACE <.5 CM Jan 14, 2020 SHAVE S/N/H/F/G .6 - 1.0CM May 14, 2021 RESULTS Name Result Date Reference Range XR LUMBAR SPINE 1 VIEW 2020-08-10 REASON FOR VISIT ENT 1 year skin check, ENT 1 year skin check, [facility]FP Skin Est, [facility]- F/U, Outpatient PT referral, [facility]-POV #2, Update // Awaiting hospital notes , [facility]- 1 MONTH F/UP, [facility]- 1 MONTH F/UP, [facility] 1 MOS F/U ,GI Concern , [facility]-POV#1, Lumbar Laminectomy L3,4,5, [facility]- Pre Op H&P, preop phone call , Desiree RF (out tomorrow), Jury duty excusal letter , Medication refill , no auth reqd // Surgical Schedule/06/11, Surgery// Pending PCP appt , [facility]- LUMBAR PAIN, DOWN LEFT LEG, Myelogram Results , Myelogram request , Myelogram results- pt called 05/22/20, [facility]- Distal Left Leg Weakness with acute onset , Spine Referral , requesting appt , ENT re check BCC , PFP Est Patient (L), PFP Shave Excision, pathology f/u, PFP EST PATIENT (S), actinic keratosis, right ear , PFP, New Patient, PFP Shave Excision Insurance Providers [facility] Patient Patient Patient Patient Patient Subscriber Subscriber Subscriber Group Insurance Plan Plan Plan Plan ID Relationship Address Phone Name Date of ID Name Date of No Type Insurance Insurance Insurance Coverage to Subscriber Address Phone Name Dates MEDICARE [id number] MEDICARE self Aamir [id number] [place] [address] MEDICARE [id number] MEDICARE self Aamir [id number] PART A [id number] [place] [address] [place] [address] [facility] Aamir [id number] [phone] [facility] [phone] [facility] [phone]
--- OUTSIDE RECORDS SUMMARY | 2021-05-14 12:53 | XMS_ITS ---
:1940 Author Care Team Providers Name Role Phone DR. JOLENE SIMON Primary Care Provider [phone] DR. JOLENE SIMON Referring Provider [phone] Allergies Code Code System Name Reaction Severity Status Onset Kirill Inhibitors Other Mild Active ? 276313 RxNorm Cascade ? ? Active ? Medications Name Status Start Date Stop Date ? ? atorvastatin 20 mg tablet Completed ? 2018 Take 1 tablet every day by oral route at bedtime. chlorthalidone 25 mg tablet Active 02/14/2019 Not available TAKE 1/2 TABLET BY ORAL ROUTE ONCE DAILY Jardiance 10 mg tablet Active 02/14/2019 Not avail able Take 1 tablet every day by oral route. losartan 100 mg tablet Active 02/14/2019 Not avail able Take 1 tablet every day by oral route. metformin 500 mg tablet Active 02/14/2019 Not avai lable Take 1 tablet twice a day by oral route. Nexium 20 mg capsule,delayed release Active 02/14/2019 Not available Take 1 capsule every day by oral route. Problems Name Status Onset Date Source ? Osteoarthritis of Knee Active 12/07/2018 ? Malignant Tumor of Colon Active ? ? Polyp of Colon Active ? ? Diabetes Mellitus Active ? ? Hyperlipidemia Active ? ? Complex Regional Pain Syndrome Active ? ? Peripheral Nerve Disease Active ? ? Retinal Hemorrhage Active ? ? Hypertensive Disorder Active ? ? Gastro-esophageal Reflux Disease with Active ? ? Esophagitis Irritable Bowel Syndrome Active ? ? Seborrheic Dermatitis Active ? ? Keratosis Active ? ? Low Back Pain Active ? ? Foot Pain Active ? ? Dizziness Active ? ? Disturbance in Sleep Behavior Active ? ? Chest Pain Active ? ? Anterior Chest Wall Pain Active ? ? Chronic Diarrhea Active ? ? Injury of Head Active ? ? Disability Affecting Daily Living Active ? ? Lesion of Right Ear Active ? ? Laminotomy Active ? ? Arthritis of Right Ankle Active ? ? Intolerance to Lactose Active ? ? Cyst of Kidney Active ? ? Procedures Date Name Performed by ? ? Knee Arthroscopy/surgery Information not available ? Laminectomy Information not avai lable Results Lab Results None recorded. Past Encounters None recorded. Social History Tobacco Smoking Status Never Smoker Vaccine List Vaccine Type influenza, injectable, quadrivalent 12/03/2014 11/24/2016 12/01/2017 12/07/2017 novel [id number], all formulation s 04/01/2009 pneumococcal conjugate PCV 7 02/05/2015 pneumococcal polysaccharide PPV23 06/19/2008 Td (adult) 06/14/2005 Tdap 07/06/2015 Plan of Care Reminders Provider Appointments None ? ? recorded. Lab None ? ? recorded. Referral None ? ? recorded. Procedures None ? ? recorded. Surgeries None ? ? recorded. Imaging None ? ? recorded. Vitals Height Weight BMI Blood Pressure 180.34 cm 100.24 kg 30.8 kg/m2 124/52 mm[Hg]
== END 2021-05-14 12:40 | disposition home or self-care (01) ==
LOC: LBN 12:39
PROVIDERS: PCP Internal Medicine; Visit Provider Otolaryngology Otolaryngology/Facial Plastic Surgery
DX: L82.1 Other seborrheic keratosis (principal); C43.59 Malignant melanoma of other part of trunk
CPT/HCPCS: 88305; 88361

== ENCOUNTER 2021-11-23 21:04 | Outpatient (REF) | payer MEDICARE, SELFPAY ==
[2021-11-23 14:22] LABS: Abs Immature Grans 0.02 10^3/uL (0.0-0.06); Absolute Basophil Count 0.02 10^3/uL (0.0-0.2); Absolute Eosinophil Count 0.15 10^3/uL (0.0-0.7); Absolute Lymphocyte Count 1.37 10^3/uL (1.2-3.4); Absolute Neutrophil Count 4.24 10^3/uL (1.2-6.7); Basophils % 0.3; Eosinophils % 2.4; HCT 40.3 % (40.0-50.0); HGB 13.9 g/dL (13.5-17.5); Immature Grans % 0.3; Lymphocytes % 22.1; MCH 33.6 pg (27.0-33.0); MCHC 34.5 % (32.0-36.0); MCV 97 fL (80-95); MPV 11.3 fL (8.0-11.0); Monocytes % 6.5; Neutrophils % 68.4; Platelet Count 167 10^3/uL (130-400); RBC 4.14 10^6/uL (4.36-5.78); RDW 14.7 % (11.8-14.1); RDW-SD 52.3 fL
[2021-11-23 14:56] LABS: Anion Gap 12.9 mmol/L (3-11); BUN 22 mg/dL (7-18); CO2 23.1 mmol/L (21.0-32.0); CREATININE 1.2 mg/dL (0.70-1.30); Calcium 8.9 mg/dL (8.5-10.1); Chloride 102 mmol/L (98-107); Estimated GFR 61.52 (mL/min/1.73m2); Glucose 260 mg/dL (74-106); Sodium 138 mmol/L (136-145)
== END 2021-11-23 21:05 | disposition home or self-care (01) ==
LOC: NCHCN 21:04
PROVIDERS: PCP Internal Medicine; Visit Provider Internal Medicine
DX: E11.9 Type 2 diabetes mellitus without complications (principal); D53.9 Nutritional anemia, unspecified; E78.5 Hyperlipidemia, unspecified; K21.00 Gastro-esophageal reflux disease with esophagitis, without bleeding
CPT/HCPCS: 80048; 85025

== ENCOUNTER 2022-10-20 10:56 | Outpatient (REF) | payer MEDICARE, SELFPAY ==
[2022-10-20 14:37] LABS: BUN 19 mg/dL (7-18); CREATININE 1.2 mg/dL (0.70-1.30); Calcium 9.4 mg/dL (8.5-10.1); Chloride 104 mmol/L (98-107); Estimated GFR 61.13 (mL/min/1.73m2); Glucose 154 mg/dL (74-106); Potassium 4.4 mmol/L (3.5-5.1); Sodium 139 mmol/L (136-145)
[2022-10-20 14:42] LABS: Hemoglobin A1C 6.2 % (<5.7)
== END 2022-10-20 10:57 | disposition home or self-care (01) ==
LOC: NCHCN 10:56
PROVIDERS: PCP Internal Medicine; Visit Provider Internal Medicine
DX: E11.9 Type 2 diabetes mellitus without complications (principal); I10 Essential (primary) hypertension
CPT/HCPCS: 80048; 83036

== ENCOUNTER 2023-01-01 10:12 | Emergency (ER) | payer MEDICARE, SELFPAY ==
[2023-01-01] VITALS (8 sets, daily range): BP systolic 168–198; BP diastolic 85–90; PULSE 83–96; RESP 18–28; TEMP 36.3; O2SAT 92–96
--- NOTE | 2023-01-01 10:15 | RT.EKG_ITS ---
APPROVED REPORT Exam: Resting ECG Reason for Exam: sob Patient Location: E HR:88 bpm ECG Measurements Heart Rate 88 AXIS MT 184 P 69 QRSd 100 QRS 17 QT 394 T 70 QTc 478 Conclusion Sinus rhythm...normal P axis, V-rate 60- 99
--- NOTE | 2023-01-01 10:22 | ED.GENADUL_ITS ---
Discharge Plan Discharge Details Chief Complaint: SOB Primary Care Provider: Miguel A Varner ED Provider: Harjinder Carter Home Meds and New Rx's Prescriptions: No Action ibuprofen 200 mg tablet 400 mg PO Q6H PRN gabapentin 600 mg tablet 600 mg PO QID Qty: 360 3RF Hold Instructions: Prescription Finished acetaminophen [Tylenol Extra Strength] 500 mg tablet 1,000 mg PO TID hydrochlorothiazide 12.5 mg tablet 12.5 mg PO DAILY esomeprazole magnesium [Nexium] 20 MG capsule,delayed release(DR/EC) 20 mg PO DAILY losartan 100 mg tablet 50 mg PO DAILY Qty: 0 0RF HPI General Date/Time Provider Initiated Documentation: 01/01/23 10:15 . HPI Narrative: 82 year old male with hx HTN, HLD, presents to the ED with c/o sob and cough over the past 3 weeks, concerned that he may have pneumonia. He intermittently will have some sputum production, greenish in color. No cp, no fevers. He has noticed that he cannot lay flat at night, stating that after about 2 1/2 hours he feels like he is 'drowning' and has to sit up. No recent travel. Related Data Home Medications Medication Instructions Recorded Confirmed esomeprazole magnesium 20 mg 20 mg PO DAILY 06/09/17 01/01/23 capsule,delayed release (Nexium) hydrochlorothiazide 12.5 mg tablet 12.5 mg PO DAILY 04/08/20 01/01/23 losartan 100 mg tablet 50 mg (1/2 x 100 mg) PO DAILY #0 10/14/20 01/01/23 tabs acetaminophen 500 mg tablet 1,000 mg PO TID 02/23/21 01/01/23 (Tylenol Extra Strength) gabapentin 600 mg tablet 600 mg PO QID #360 tabs 03/30/21 01/01/23 ibuprofen 200 mg tablet 400 mg PO Q6H PRN 03/30/21 01/01/23 Previous Rx's Medication Instructions Recorded losartan 100 mg tablet 50 mg (1/2 x 100 mg) PO DAILY #0 10/14/20 tabs gabapentin 600 mg tablet 600 mg PO QID #360 tabs 03/30/21 Allergies Allergy/AdvReac Type Severity Reaction Status Date / Time metformin Allergy Intermediate Verified 01/01/23 10:24 Zhchcsl-AOC-OaC Reductase Allergy Intermediate Verified 01/01/23 10:24 Inhibitor [Xzzebxw-Pdd-Rnn Reductase Inhibitor] JAKOB Inhibitors AdvReac Mild Unverified 01/01/23 10:24 TURKEY Allergy Mild Uncoded 01/01/23 10:24 General SRIDEVI: 3 Review of Systems Narrative: CONST: no fever or chills HEENT: no sore throat SKIN: no rashes PULM: +sob, +cough CARD: no cp, no palpitations ABD: no abd pain EXTR: no swelling NEURO: No focal weakness PFSH All Active Problems (Updated 05/17/22 @ 11:14 by Isabella Givens) Ulnar neuropathy of both upper extremities (Acute) Carpal tunnel syndrome on both sides (Acute) Thoracic radiculopathy (Acute) Cervical myelopathy with cervical radiculopathy (Acute) Type 2 diabetes mellitus (Chronic) Acute chest wall pain (Acute) Syncope and collapse determined by examination (Acute) Low back pain (Chronic) Left leg weakness (Acute) Medical History (Updated 05/17/22 @ 11:14 by Isabella Givens) Left foot pain Sleep disturbance Musculoskeletal pain Rib pain Diarrhea Thoracic back pain Degenerative disc disease Chronic back pain Actinic keratosis, hx of Lumbar radiculopathy Lumbar spinal stenosis Basal cell carcinoma (BCC) of skin of upper extremity including shoulder Basal cell carcinoma (BCC) of left ear Basal cell carcinoma (BCC) of right ear Hypertension Reflex sympathetic dystrophy of lower limb Right leg Hyperlipidemia Peripheral neuropathy Renal cyst, congenital, right Retinal hemorrhage Seborrheic dermatitis Hx of adenomatous colonic polyps History of IBS Esophagitis, reflux Lactose intolerance Arthritis of right ankle Hx of head injury Surgical History S/P skin cancer resection S/P cataract extraction S/P right knee surgery S/P cholecystectomy S/P hernia surgery Family History Mother Diabetes Social History Smoking/Tobacco Use Status: Former Tobacco Use Smoking risk assessment performed?: Yes Alcohol Intake: never Drug use: Never Household members: spouse Housing: house Number of Children: 4 current occupation: Retired Pets and animals: Yes Pets and animals: cat(s) What is your relationship status?: Panel score (0-1 are the most socially isolated patients): 1 Seatbelt use: always Do you feel safe at home: Yes Do you feel safe in your relationship?: Yes Exam Narrative Exam Narrative: Const: well appearing, no acute distress HEENT: normocephalic, atraumatic; MMM Lungs: faint crackle, L>R, but overall good air movement Heart: RRR Abd: soft, NT/ND Ext: well perfused, 1-2+ pitting b/l LE's. Neuro: non-focal Skin: no rashes Course 82 yo male with persistent sob over the past 3 weeks, notes orthopnea, and new LE swelling. Which sounds suspicious for new onset CHF. Will check ekg, cxr, labs, and reassess. Reevaluation(s) Initial Evaluation: 1136 - pt ambulated with pulse ox, remained at 95%, no drop in sat. Has notably elevated bnp at 9000, and neg trop. cxr with pleural effusion, and atelectasis vs pna. Clinically, most consistent with new chf type picture, and pneumonia seems less likely given hx. He has not had an echo in years, but should have one now. PCP office contacted for f/u this week and re-eval. Will try dose lasix today, and small dose for home. His Cr 2.8, up from 1.2 a couple months ago, so will need this followed closely with pcp, as well.
[2023-01-01 10:54] LABS: Abs Immature Grans 0.02 10^3/uL (0.0-0.06); Absolute Basophil Count 0.02 10^3/uL (0.0-0.2); Absolute Eosinophil Count 0.33 10^3/uL (0.0-0.7); Absolute Lymphocyte Count 1.11 10^3/uL (1.2-3.4); Absolute Monocyte Count 0.46 10^3/uL (0.1-0.8); Absolute Neutrophil Count 5.09 10^3/uL (1.2-6.7); Basophils % 0.3; Eosinophils % 4.7; HCT 33.4 % (40.0-50.0); HGB 11.2 g/dL (13.5-17.5); Immature Grans % 0.3; Lymphocytes % 15.8; MCH 32.8 pg (27.0-33.0); MCHC 33.5 % (32.0-36.0); MCV 98 fL (80-95); Monocytes % 6.5; Neutrophils % 72.4; Platelet Count 315 10^3/uL (130-400); RBC 3.41 10^6/uL (4.36-5.78); RDW 14.3 % (11.8-14.1); RDW-SD 51.2 fL; WBC 7.03 10^3/uL (4.4-10.8)
--- NOTE | 2023-01-01 10:56 | DI.RAD_ITS ---
Exam(s) XR CHEST 2V PA LATERAL EXAM: XR CHEST 2V PA LATERAL CLINICAL HISTORY: cough/sob TECHNIQUE: 2D digital imaging was performed. COMPARISON: CR XR RIBS BI INCLUDE CHEST from 03/02/2020 CR XR THORACIC SPINE COMPLETE from 01/25/2021 FINDINGS: HEART: Normal size. Aorta: Not dilated. PULMONARY VASCULATURE: Prominent. LUNGS: Increased interstitial markings greater near the lung bases suspicious for mild pulmonary ida a. PLEURAL SPACE: No pneumothorax. Tiny bilateral pleural effusions. BONE:Unremarkable for age. IMPRESSION: Mild CHF. DATA REPOSITORY: RADIATION DOSE DELIVERED:
--- NOTE | 2023-01-01 11:16 | DI.VRAD_ITS ---
PROCEDURE INFORMATION: Exam: XR Chest Exam date and time: 01/01/2023 10:54 AM Age: 82 years old Clinical indication: Cough TECHNIQUE: Imaging protocol: Radiologic exam of the chest. Views: 2 views. COMPARISON: CR XR RIBS BI INCLUDE CHEST 03/02/2020 9:09 AM FINDINGS: Lungs: Mild opacity in the left lower lobe Pleural spaces: Minimal blunting in the left costophrenic angle may represent small left pleural effusion . Heart/Mediastinum: Unremarkable. No cardiomegaly. Bones/joints: Unremarkable. IMPRESSION: Minimal blunting in the left costophrenic angle may represent small left pleural effusion . Mild opacity in the left lower lobe may represent atelectasis or pneumonia. Dictated and Authenticated by: Xiomara Davis MD. Ordering:APRIL Grande MD
[2023-01-01 11:20] LABS: ALT 16 U/L (16-63); AST 19 U/L (15-37); Alkaline Phosphatase 96 U/L (46-116); Anion Gap 10.1 mmol/L (3-11); BUN 49 mg/dL (7-18); Bilirubin, Total 0.7 mg/dL (0.2-1.0); CO2 25.9 mmol/L (21.0-32.0); CREATININE 2.8 mg/dL (0.70-1.30); Calcium 8.8 mg/dL (8.5-10.1); Chloride 105 mmol/L (98-107); Estimated GFR 22.12 (mL/min/1.73m2); Glucose 105 mg/dL (74-106); NT-proBNP 9276 pg/mL (<300); Potassium 3.6 mmol/L (3.5-5.1); Sodium 141 mmol/L (136-145); Total Protein 8.2 g/dL (6.4-8.2); Troponin I < 50 ng/L (<or=60)
--- NOTE | 2023-01-01 11:35 | NUR.NOTE ---
Referral faxed to PCP for new onset CHF/ to be seen this week. Nursing Note:
[2023-01-01] MEDS: Furosemide 40 MG/4 ML VIAL IVP (11:39)
== END 2023-01-01 11:58 | disposition home or self-care (01) ==
PROVIDERS: Emergency Provider Emergency Medicine; PCP Internal Medicine
DX: R09.89 Other specified symptoms and signs involving the circulatory and respiratory systems (principal); M79.89 Other specified soft tissue disorders; R06.02 Shortness of breath; I10 Essential (primary) hypertension; E78.5 Hyperlipidemia, unspecified; R05.9 Cough, unspecified; Z79.899 Other long term (current) drug therapy; R91.8 Other nonspecific abnormal finding of lung field
CPT/HCPCS: 36415; 80053; 93005; 96374; 99285; 71046; 83880; 84484; 85025; 93010; 99284; J1940

== ENCOUNTER 2023-01-04 21:10 | Outpatient (REF) | payer MEDICARE, SELFPAY ==
[2023-01-04 14:53] LABS: HCT 33.2 % (40.0-50.0); MCH 32.4 pg (27.0-33.0); MCHC 33.1 % (32.0-36.0); MCV 98 fL (80-95); MPV 9.5 fL (8.0-11.0); Platelet Count 351 10^3/uL (130-400); RBC 3.39 10^6/uL (4.36-5.78); RDW 14.3 % (11.8-14.1); RDW-SD 50.9 fL; WBC 7.82 10^3/uL (4.4-10.8)
[2023-01-04 15:26] LABS: ALT 19 U/L (16-63); AST 27 U/L (15-37); Alkaline Phosphatase 89 U/L (46-116); Anion Gap 10.4 mmol/L (3-11); BUN 41 mg/dL (7-18); Bilirubin, Total 0.7 mg/dL (0.2-1.0); CO2 25.6 mmol/L (21.0-32.0); CREATININE 2.9 mg/dL (0.70-1.30); Calcium 8.8 mg/dL (8.5-10.1); Chloride 103 mmol/L (98-107); Glucose 122 mg/dL (74-106); NT-proBNP 9650 pg/mL (<300); Potassium 3.4 mmol/L (3.5-5.1); Sodium 139 mmol/L (136-145)
== END 2023-01-04 21:11 | disposition home or self-care (01) ==
LOC: NCHCN 21:10
PROVIDERS: PCP Family Medicine; Visit Provider Family Medicine
DX: I70.203 Unspecified atherosclerosis of native arteries of extremities, bilateral legs (principal); D53.9 Nutritional anemia, unspecified
CPT/HCPCS: 80053; 85027; 83880

== ENCOUNTER → 2023-01-09 00:25 | Outpatient (CLI) | payer MEDICARE, SELFPAY ==
--- NOTE | 2023-01-09 16:25 | DI.US_ITS ---
APPROVED REPORT EXAM: Comprehensive 2D, Doppler, and color-flow Echocardiogram Patient Location: Out-Patient Overseamer: Alvin Giordano RDCS (AE) Indications: heart failure Other Information Study Quality: Adequate. Technically limited study due to body habitus. Conclusion Left ventricle is mildly dilated. Wall thickness is normal. Ejection fraction is 40%. The apical a nd inferoapical segments are akinetic. The remainder of the ventricle is hypokinetic Normal right ventricular size and systolic function Both atria are normal in size There are no structural valvular abnormalities There is moderate mitral and tricuspid regurgitation Estimated right ventricular systolic pressure is 45 mmHg Wall motion Left Ventricle The left ventricle is mildly dilated. Left ventricular systolic function is moderately decreased. Th ere is normal left ventricular wall thickness. The posterior wall thickness is normal. The septum is normal. Apical and inferolateral apical segments are akinetic. The remainder of the ventricle is hypo contractile There is no ventricular septal defect visualized. LVEF is 40%. Right Ventricle The right ventricle is normal size. The right ventricular systolic function is normal. The RVSP is 45 .2 mmHg. Atria The left atrium size is normal. The right atrium size is normal. The interatrial septum is intact wit h no evidence for an atrial septal defect. Aortic Valve The aortic valve is normal in structure. Aortic valve is trileaflet. There is no aortic valvular sten osis. Mitral Valve The mitral valve is normal in structure. No evidence of mitral valve stenosis. Moderate mitral regurg itation. Tricuspid Valve The tricuspid valve is normal in structure. There is no tricuspid valve stenosis. Moderate tricuspid regurgitation. Pulmonic Valve The pulmonary valve is normal in structure. There is no pulmonic valvular stenosis. Trace pulmonic re gurgitation. Great Vessels The aortic root is normal in size. The aortic root size is normal. The ascending aorta is normal in s ize. Aortic arch is not well visualized. The ascending aorta size is dilated. IVC is normal in size a nd collapses >50% with inspiration. Pericardium There is no pericardial effusion. 2D Dimensions IVSD d PLAX 0.89 cm M: 0.6-1.2 Ao Root d 3.63 cm M: 3.1 - 3.7 LVPW d PLAX 0.67 cm M: 0.6 - 1.2 Ao Asc Diam d 3.43 cm M: 2.6 - 3.4 LVID d PLAX 5.92 cm M: 4.2 - 5.8 LVDs 4.84 cm M: 2.5 - 4.0 LV EF Teichholz 37.3 % FS 18.30 % LV EDV (Teich) 174.9 mL LV ESV (Teich) 109.6 mL Stroke Vol Index (Teich) 32.95 M-Mode TAPSE 2.43 cm (M/F) >1.7 Auto EF LV EDV A4C 157.1 mL LV EDV A2C 163.0 mL LV EDV BP 166.7 mL LV ESV A4C 101.6 mL LV ESV A2C 100.8 mL LV ESV BP 101.1 mL LVEF(%) A4C 35.4 % LVEF(%) A2C 38.2 % LVEF(%) BP 39.4 % LV SV A4C 55.6 ml LV SV A2C 62.2 ml LV SV BP 65.7 ml LV CO A4C 4.8 L/min LV CO A2C 5.3 L/min LV CO BP 5.1 L/min HR A4C 87.17 BPM HR A2C 84.91 BPM LV EDV Index (BP) LA Volume LA Length A4C 5.4 cm LA Length A2C LA Area A4C s 16.08 cm2 LA Area A2C s LA Vol A4C A-L 40.64 mL LA Vol A2C A-L LA Vol Biplane A-L LA Vol A4C MOD 39.2 mL LA Vol A2C MOD LA Vol BP MOD RA Volume RA Area A4C 10.4 cm2 RA ESV A4C (A-L) 21.0mL RA Vol/BSA A4C A-L RA Length A4C 4.4 cm RA ESV A4C (MOD) 21.1mL LV Diastology MV E' medial 0.074 (>0.07 m/s) MV E Vmax 1.02 (0.4-1.3 m/s) MV E/E' MED 13.84 (<14) MV A Vmax 1.00 (0.4-1.3 m/s) MV E' lateral 0.099 (>0.1 m/s) E/A Ratio 1.0 MV E/E' LAT 10.33 (<14) MV E' Average 0.086 m/s MV E/E'(average) 11.83 Aortic Valve AoV Vmax 1.24 m/s LVOT Vmax 1.14 m/s AoV Peak Grad 6.2 mmHg LVOT Peak Grad 5.2 mmHg AoV Area (Vmax) 2.48 cm2 LVOT VTI 0.221 m AoV VTI 0.258 m LVOT Mean Grad 3.2 mmHg AoV Mean Jaylon. 0.86 m/s LVOT SV 60.12 mL AoV Mean Grad 3.4 mmHg LVOT Diam s 1.85 cm AoV Area (VTI) 2.33 cm2 Velocity Ratio 0.92 Mitral Valve MV DT 211 (160-240 msec) Pulmonary Valve PV Vmax 0.97 (0.5-1.5 m/s) RVOT Vmax 0.61 m/s PV Peak Grad 3.8 mmHg RVOT Peak Gr. 1.5 mmHg PV Mean Jaylon 0.72 m/s RVOT VTI 0.117 m PV Mean Grad 2.3 mmHg RVOT Mean Gr. 0.7 mmHg Tricuspid Valve RA Pressure 3.00 mmHg TR Vmax 3.25 m/s TR Peak Grad 42.1 mmHg RVSP (TR) 45.2 mmHg
== END ==
PROVIDERS: PCP Internal Medicine; Visit Provider Family Medicine
DX: I50.9 Heart failure, unspecified (principal)
CPT/HCPCS: 93306

== ENCOUNTER 2023-01-12 09:14 | Outpatient (REF) | payer MEDICARE, SELFPAY ==
[2023-01-12 15:38] LABS: Bilirubin Color Interference (Negative); Blood Color Interference (Negative); Clarity Turbid (Clear); Glucose Color Interference mg/dL (Negative); Ketones Color Interference mg/dL (Negative); Leukocyte Esterase Color Interference (Negative); Nitrite Color Interference (Negative); Specific Gravity 1.023 (1.005-1.025); Urobilinogen Color Interference mg/dL (Up to 0.2)
[2023-01-12 15:39] LABS: Bacteria Rare HPF (Negative); C & S Indicated? No/Sq. Contamination; Crystals Negative HPF (Negative); Epithelial Cells Moderate HPF (Negative); Mucus Negative (Negative); Other Cells Rare Renal (Negative); RBC >50 HPF (0-2); WBC 0-2 HPF (0-5)
== END 2023-01-12 09:15 | disposition home or self-care (01) ==
LOC: NCHCN 09:14
PROVIDERS: PCP Family Medicine; Visit Provider Family Medicine
DX: I21.3 ST elevation (STEMI) myocardial infarction of unspecified site (principal); I50.9 Heart failure, unspecified; E78.5 Hyperlipidemia, unspecified
CPT/HCPCS: 81003; 81015

== ENCOUNTER 2023-01-13 15:13 | Outpatient (CLI) | payer MEDICARE, SELFPAY ==
[2023-01-13 10:41] LABS: Abs Immature Grans 0.02 10^3/uL (0.0-0.06); Absolute Basophil Count 0.02 10^3/uL (0.0-0.2); Absolute Eosinophil Count 0.13 10^3/uL (0.0-0.7); Absolute Lymphocyte Count 0.96 10^3/uL (1.2-3.4); Absolute Monocyte Count 0.44 10^3/uL (0.1-0.8); Basophils % 0.3; Eosinophils % 1.8; HCT 30.9 % (40.0-50.0); HGB 10.6 g/dL (13.5-17.5); Immature Grans % 0.3; Lymphocytes % 13.6; MCH 33.2 pg (27.0-33.0); MCHC 34.3 % (32.0-36.0); MCV 97 fL (80-95); MPV 9.1 fL (8.0-11.0); Monocytes % 6.2; Neutrophils % 77.8; Platelet Count 237 10^3/uL (130-400); RBC 3.19 10^6/uL (4.36-5.78); RDW 14.6 % (11.8-14.1); RDW-SD 51.8 fL; WBC 7.07 10^3/uL (4.4-10.8)
[2023-01-13 12:02] LABS: Anion Gap 15.2 mmol/L (3-11); BUN 67 mg/dL (7-18); CO2 22.8 mmol/L (21.0-32.0); Calcium 8.4 mg/dL (8.5-10.1); Calculated LDL 124 mg/dL (<100); Chloride 102 mmol/L (98-107); Cholesterol 185 mg/dL (<200); Estimated GFR 9.23 (mL/min/1.73m2); Glucose 115 mg/dL (74-106); HDL Cholesterol 37 mg/dL (40-60); Sodium 140 mmol/L (136-145); Triglyceride 120 mg/dL (<150)
[2023-01-13 12:06] LABS: CREATININE 5.8 mg/dL (0.70-1.30)
== END 2023-01-13 15:14 | disposition home or self-care (01) ==
LOC: LBO 15:13
PROVIDERS: PCP Family Medicine; Visit Provider Family Medicine
DX: I50.9 Heart failure, unspecified; E78.5 Hyperlipidemia, unspecified
CPT/HCPCS: 36415; 80048; 80061; 83735; 85025

== ENCOUNTER → 2023-01-16 01:24 | Outpatient (CLI) | payer MEDICARE, SELFPAY ==
--- NOTE | 2023-01-16 | DI.US_ITS ---
Exam(s) US RENAL EXAM: US RENAL CLINICAL HISTORY: ACUTE ON CHRONIC KIDNEY INJURY,N17.9. TECHNIQUE: Garcia scale, color and spectral Doppler were used. COMPARISON: No exams were available for comparison FINDINGS: Renal size in cm: Right: 11.1 left: 12.4 Echogenicity: Mildly increased, consistent with medical renal disease. Hydronephrosis: No Cyst or mass: Small left renal cysts. The largest measures 2.1 cm at the upper pole. Nephrolithiasis: No Bladder:Normal. Both ureteral jets were visualized. Prevoid vol:43 cc Postvoid vol:Patient unable to void IMPRESSION: Mildly increased renal echogenicity consistent with medical renal disease. No evidence of hydronephr osis. DATA REPOSITORY:
== END ==
PROVIDERS: PCP Internal Medicine; Visit Provider Internal Medicine
DX: N17.9 Acute kidney failure, unspecified (principal)
CPT/HCPCS: 76770

== ENCOUNTER 2023-01-17 10:50 | Outpatient (CLI) | payer MEDICARE, SELFPAY ==
[2023-01-17 09:48] LABS: Anion Gap 16.5 mmol/L (3-11); CO2 19.5 mmol/L (21.0-32.0); Calcium 8.4 mg/dL (8.5-10.1); Chloride 103 mmol/L (98-107); Glucose 100 mg/dL (74-106); Potassium 3.6 mmol/L (3.5-5.1); Sodium 139 mmol/L (136-145)
[2023-01-17 10:00] LABS: BUN 97 mg/dL (7-18); CREATININE 8.8 mg/dL (0.70-1.30)
== END 2023-01-17 10:51 | disposition home or self-care (01) ==
LOC: LBO 10:50
PROVIDERS: PCP Internal Medicine; Visit Provider Internal Medicine
DX: N17.9 Acute kidney failure, unspecified (principal)
CPT/HCPCS: 36415; 80048

== ENCOUNTER 2023-01-17 12:08 | Emergency (ER) | payer MEDICARE, SELFPAY ==
[2023-01-17] VITALS (52 sets, daily range): BP systolic 135–189; BP diastolic 59–119; PULSE 77–91; RESP 10–28; TEMP 36.4; O2SAT 85–97
--- NOTE | 2023-01-17 12:00 | RT.EKG_ITS ---
APPROVED REPORT Exam: Resting ECG Reason for Exam: shortness of breath Patient Location: E HR:85 bpm ECG Measurements Heart Rate 85 AXIS OR 247 P 74 QRSd 101 QRS 66 QT 408 T 171 QTc 487 Conclusion Sinus rhythm...normal P axis, V-rate 60- 99 Prolonged OR interval...OR >220, V-rate 50- 90 Repol abnrm suggests ischemia, lateral leads...ST dep, T neg, I aVL V5 V6 Sinus rhythm with first degree heart block. No significant change from 01/01/23. WD
--- NOTE | 2023-01-17 12:15 | DI.RAD_ITS ---
Exam(s) XR PORTABLE CHEST AP EXAM: XR PORTABLE CHEST AP CLINICAL HISTORY: SOB TECHNIQUE: 2D digital imaging was performed. COMPARISON: CR,XR XR CHEST 2V PA LATERAL from 01/01/2023 FINDINGS: Exam is limited by under penetration at the lung bases, respiratory motion and leads coiled over the chest. LUNGS: small bilateral pleural effusions. Increased interstitial markings and vascular prominence, consistent with CHF. No focal area of consolidation visible. HEART: Normal size for projection. AORTA: Normal diameter. BONES: Unremarkable for age. Soft tissues: Unremarkable. IMPRESSION: CHF with small bilateral pleural effusions. DATA REPOSITORY: RADIATION DOSE DELIVERED:
--- NOTE | 2023-01-17 12:23 | W.ED.GENAD ---
Discharge Plan Disposition Patient Disposition: Transfer-Acute Inpatient Care Specific Acute Inpt Facility: [facility] Condition: Stable Discharge Details Clinical Impression: Basal cell carcinoma, Acute exacerbation of CHF (congestive heart failure), Acute renal failure (ARF), Type 2 diabetes mellitus, Hypoglycemia, Pleural effusion Primary Care Provider: Miguel A Varner ED Provider: Julianna Joseph Home Meds and New Rx's Prescriptions: No Action ibuprofen 200 mg tablet 400 mg PO Q6H PRN gabapentin 600 mg tablet 600 mg PO QID Qty: 360 3RF Hold Instructions: Prescription Finished acetaminophen [Tylenol Extra Strength] 500 mg tablet 1,000 mg PO TID esomeprazole magnesium [Nexium] 20 MG capsule,delayed release(DR/EC) 20 mg PO DAILY Medical Decision Making 82-year-old male presents for evaluation of shortness of breath. Patient does have significant leg swelling as well as crackles on exam concerning for congestive heart failure. It is not clear that he has a definitive diagnosis of congestive heart failure at this time. He initially was complaining of some chest tightness however he states that it is barely there. Aspirin and nitro were ordered. EKG did not show any acute ischemic changes. Chest x-ray shows CHF and pleural effusion. Laboratory studies concerning for hypoglycemia. Patient was given orange juice and D50. Blood sugar was monitored every 1/2 hour and remained stable. His BUN is 97 with a creatinine of 9 consistent with acute renal failure. BNP is greater than 25,000. Troponin is normal at this time. Patient's chest pain completely resolved after sublingual nitro and did not return. Patient given a dose of 80 mg of IV Lasix. He had an episode of hypoxia with sats going down to 84%. Patient was placed on BiPAP. Initial VBG was ordered. Patient's blood pressure remained somewhat elevated topical nitroglycerin was ordered. Repeat VBG ordered 1 hour after. I initially spoke with [facility] transfer center at patient's request. Unfortunately they are unable to take any patients for the next 24 to 48 hours. I then spoke with the transfer center at [facility]. Patient is excepted in transfer by Dr. Wolfe. They requested to start hydralazine 10 mg. This was given. HPI General Date/Time Provider Initiated Documentation: 01/17/23 12:12. HPI Narrative: 82-year-old male with history of basal cell carcinoma presents for evaluation of shortness of breath. Patient states that he has been having some increased shortness of breath. He had some chest tightness and shortness of breath this morning. He actually states that he has been having some chest tightness for a week or more. He has also had some intermittent shortness of breath. He was seen in the emergency department in December and started on some diuretics. It was recommended that he have an outpatient echocardiogram performed which he did. He states that he does not have any more diuretic at home. He is not sure why he is not taking it. He has noticed increased leg swelling since that time that he ran out of the diuretic about a week ago. He denies any fevers or chills. No cough or cold. He is not on any blood thinners at home. Initial oxygen per EMS was in the 80s. He was placed on 2 L nasal cannula in route with improvement of oxygen to mid 90s. At time of ED arrival he is satting in low 90s without oxygen. Related Data Home Medications Medication Instructions Recorded Confirmed esomeprazole magnesium 20 mg 20 mg PO DAILY 06/09/17 01/17/23 capsule,delayed release (Nexium) acetaminophen 500 mg tablet 1,000 mg PO TID 02/23/21 01/17/23 (Tylenol Extra Strength) gabapentin 600 mg tablet 600 mg PO QID #360 tabs 03/30/21 01/17/23 ibuprofen 200 mg tablet 400 mg PO Q6H PRN 03/30/21 01/17/23 Previous Rx's Medication Instructions Recorded gabapentin 600 mg tablet 600 mg PO QID #360 tabs 03/30/21 Allergies Allergy/AdvReac Type Severity Reaction Status Date / Time metformin Allergy Intermediate Verified 01/17/23 12:18 Cwlygqk-HKR-NrY Reductase Allergy Intermediate Verified 01/17/23 12:18 Inhibitor [Rujywgw-Oro-Vss Reductase Inhibitor] JAKOB Inhibitors AdvReac Mild Unverified 01/17/23 12:18 TURKEY Allergy Mild Uncoded 01/17/23 12:18 General Stated Complaint: Chest Pain SRIDEVI: 2 Review of Systems Narrative: Remainder of review of systems otherwise negative except for as noted in the HPI x10. PFSH All Active Problems (Updated 01/17/23 @ 14:53 by Julianna Joseph MD) Hypoglycemia (Acute) Acute renal failure (ARF) (Acute) Acute exacerbation of CHF (congestive heart failure) (Acute) Basal cell carcinoma (Acute) Pleural effusion (Acute) Ulnar neuropathy of both upper extremities (Acute) Carpal tunnel syndrome on both sides (Acute) Thoracic radiculopathy (Acute) Cervical myelopathy with cervical radiculopathy (Acute) Type 2 diabetes mellitus (Chronic) Acute chest wall pain (Acute) Syncope and collapse determined by examination (Acute) Low back pain (Chronic) Left leg weakness (Acute) Medical History Left foot pain Sleep disturbance Musculoskeletal pain Rib pain Diarrhea Thoracic back pain Degenerative disc disease Chronic back pain Actinic keratosis, hx of Lumbar radiculopathy Lumbar spinal stenosis Basal cell carcinoma (BCC) of skin of upper extremity including shoulder Basal cell carcinoma (BCC) of left ear Basal cell carcinoma (BCC) of right ear Hypertension Reflex sympathetic dystrophy of lower limb Right leg Hyperlipidemia Peripheral neuropathy Renal cyst, congenital, right Retinal hemorrhage Seborrheic dermatitis Hx of adenomatous colonic polyps History of IBS Esophagitis, reflux Lactose intolerance Arthritis of right ankle Hx of head injury Surgical History S/P skin cancer resection S/P cataract extraction S/P right knee surgery S/P cholecystectomy S/P hernia surgery Family History Mother Diabetes Social History Smoking/Tobacco Use Status: Former Tobacco Use Smoking risk assessment performed?: Yes Alcohol Intake: never Drug use: Never Household members: spouse Housing: house Number of Children: 4 current occupation: Retired Pets and animals: Yes Pets and animals: cat(s) What is your relationship status?: Panel score (0-1 are the most socially isolated patients): 1 Seatbelt use: always Do you feel safe at home: Yes Do you feel safe in your relationship?: Yes Exam Narrative Exam Narrative: General: non-toxic, no respiratory distress, comfortable HEENT: normocephalic, atraumatic, lids and lashes normal, PERRL, EOMI, anicteric sclera, no conjunctival injection, moist oral mucosa Card: regular rate and rhythm, S1S2, no murmurs, rubs, or gallops Lungs: Diminished air exchange, crackles throughout, no wheezes, rales, rhonchi, or retractions Abd: soft, non-tender, non-distended, normal bowel sounds, no rebound or guarding, no peritoneal signs Musculoskeletal: full range of motion of arms and legs, no tenderness to palpation. no clubbing or cyanosis, 4+ bilateral lower extremity edema Neurologic: appropriate for age, strength normal Psych: alert and oriented Skin: no petechiae, no lesions, warm and dry Course Vital Signs Vital signs: Vital Signs Temperature 36.4 C L 01/17/23 12:09 Pulse 91 H 01/17/23 12:09 Respiratory Rate 21 01/17/23 12:09 Blood Pressure 147/59 H 01/17/23 12:09 Pulse Oximetry 91 L 01/17/23 12:09 Temperature 36.4 C L 01/17/23 12:09 Temperature Source Oral 01/17/23 12:09 Pulse 91 H 01/17/23 12:09 Respiratory Rate 21 01/17/23 12:09 Respiratory Effort Short of Breath 01/17/23 12:15 Blood Pressure 147/59 H 01/17/23 12:09 Blood Pressure Position Sitting 01/17/23 12:09 Pulse Oximetry 91 L 01/17/23 12:09 Oxygen Delivery Method Room Air 01/17/23 12:09 Oxygen Flow Rate 0 01/17/23 12:09 Pain Level 4 01/17/23 12:09 Critical Care Time Critical Care Time Attestation: CRITICAL CARE Total critical care time:50 minutes Critical care concerns: Hypoglycemia, hypertension, chest pain, CHF exacerbation Critical care interventions: IV glucose, sublingual nitroglycerin, aspirin, Nitropaste, IV Lasix, BiPAP, hydralazine, cardiology consultation Total critical care time included the assessment and discussions as described in the emergency department history, physical, and medical decision making. The critical care time provided excludes separately billable procedures.
[2023-01-17] MEDS: Aspirin 81 MG CHEW 324 MG CH (12:33)
[2023-01-17 12:35] LABS: Abs Immature Grans 0.03 10^3/uL (0.0-0.06); Absolute Basophil Count 0.01 10^3/uL (0.0-0.2); Absolute Eosinophil Count 0.21 10^3/uL (0.0-0.7); Absolute Lymphocyte Count 1.12 10^3/uL (1.2-3.4); Absolute Monocyte Count 0.46 10^3/uL (0.1-0.8); Absolute Neutrophil Count 6.43 10^3/uL (1.2-6.7); Basophils % 0.1; Eosinophils % 2.5; HCT 29.5 % (40.0-50.0); Immature Grans % 0.4; Lymphocytes % 13.6; MCH 32.8 pg (27.0-33.0); MCHC 33.9 % (32.0-36.0); MCV 97 fL (80-95); MPV 9.4 fL (8.0-11.0); Monocytes % 5.6; Neutrophils % 77.8; Platelet Count 249 10^3/uL (130-400); RBC 3.05 10^6/uL (4.36-5.78); RDW 14.6 % (11.8-14.1); RDW-SD 51.4 fL; WBC 8.26 10^3/uL (4.4-10.8)
[2023-01-17 12:57] LABS: ALT 20 U/L (16-63); AST 23 U/L (15-37); Alkaline Phosphatase 101 U/L (46-116); Anion Gap 14.8 mmol/L (3-11); Bilirubin, Total 0.5 mg/dL (0.2-1.0); CO2 22.2 mmol/L (21.0-32.0); Calcium 8.2 mg/dL (8.5-10.1); Chloride 102 mmol/L (98-107); Estimated GFR 5.45 (mL/min/1.73m2); Magnesium 2.2 mg/dL (1.8-2.4); NT-proBNP 25030 pg/mL (<300); Potassium 3.5 mmol/L (3.5-5.1); Sodium 139 mmol/L (136-145); Total Protein 8.1 g/dL (6.4-8.2); Troponin I < 50 ng/L (<or=60)
[2023-01-17 13:02] LABS: BUN 97 mg/dL (7-18); Glucose 40 mg/dL (74-106)
[2023-01-17] MEDS: Dextrose 50%-Water 25 GM/50 ML SYR (13:08)
[2023-01-17 13:17] LABS: D-Dimer 850 ng/mlFEU (<500)
[2023-01-17] MEDS: Furosemide 100 MG/10 ML VIAL 80 MG IVP (13:52)
[2023-01-17 13:56] LABS: BE (Venous) -7 mmol/L (-2-3); HCO3 (Venous) 20 mmol/L (23-28); O2 Sat (Venous) 61 %; TCO2 (Venous) 20 mmol/L (24-29); pCO2 (Venous) 44 mmHg (41-51); pH (Venous) 7.26 (7.31-7.41); pO2 (Venous) 37 mmHg
[2023-01-17 14:40] LABS: COVID-19 PCR Negative (Negative); Influenza A PCR Negative (Negative); Influenza B PCR Negative (Negative); RSV PCR Negative (Negative)
[2023-01-17 14:51] LABS: Source Nasopharynx
[2023-01-17] MEDS: nitroGLYcerin 2% 1 INCH/1 GM PKT TP (15:01)
[2023-01-17 15:11] LABS: BE (Venous) -7 mmol/L (-2-3); HCO3 (Venous) 20 mmol/L (23-28); O2 Sat (Venous) 71 %; TCO2 (Venous) 20 mmol/L (24-29); pCO2 (Venous) 45 mmHg (41-51); pH (Venous) 7.26 (7.31-7.41); pO2 (Venous) 43 mmHg
[2023-01-17 15:48] LABS: Troponin I < 50 ng/L (<or=60)
[2023-01-17] MEDS: hydrALAZINE 20 MG/ML VIAL 10 MG IVP (16:00)
[2023-01-17] MEDS: Furosemide 100 MG/10 ML VIAL 160 MG IVP (16:14)
== END 2023-01-17 17:29 | disposition short-term general hospital (02) ==
PROVIDERS: Emergency Medicine Emergency Medical Services; Emergency Provider Emergency Medicine; PCP Internal Medicine
DX: C44.91 Basal cell carcinoma of skin, unspecified; I11.0 Hypertensive heart disease with heart failure; I50.9 Heart failure, unspecified; E11.9 Type 2 diabetes mellitus without complications; N17.9 Acute kidney failure, unspecified; E11.649 Type 2 diabetes mellitus with hypoglycemia without coma; J90 Pleural effusion, not elsewhere classified
CPT/HCPCS: 36415; 80048; 80053; 82805; 82962; 87637; 93005; 96374; 96375; 96376; 99291; 71045; 83735; 83880; 84484; 85025; 85379; 93010; J0360; J1940

== ENCOUNTER 2023-05-09 14:03 | Emergency (ER) | payer MEDICARE, SELFPAY ==
[2023-05-09] VITALS (15 sets, daily range): BP systolic 142–233; BP diastolic 58–81; PULSE 76–82; RESP 18; TEMP 36.4–36.9; O2SAT 97–99
--- NOTE | 2023-05-09 14:15 | DI.RAD_ITS ---
Exam(s) XR CHEST 1V IN DI DEPT EXAM: XR CHEST 1V IN DI DEPT CLINICAL HISTORY: fall; weak, OR bound TECHNIQUE: 2D digital imaging was performed. COMPARISON: CR XR PORTABLE CHEST AP from 01/17/2023 FINDINGS: Central venous catheter noted with tip in right atrium. LUNGS: Clear. No pleural abnormality seen. HEART: Normal size. AORTA: Normal diameter. BONES: Degenerative changes and mild scoliosis in the thoracic spine.. Soft tissues: Surgical clips in the right axilla. IMPRESSION: No acute findings. DATA REPOSITORY: RADIATION DOSE DELIVERED:
--- NOTE | 2023-05-09 14:15 | RT.EKG_ITS ---
APPROVED REPORT Exam: Resting ECG Reason for Exam: fall; OR bound Patient Location: E HR:78 bpm ECG Measurements Heart Rate 78 AXIS NH 224 P 47 QRSd 102 QRS -2 QT 401 T 82 QTc 458 Conclusion Atrial-paced complexes...other complexes also detected Prolonged NH interval...NH >220, V-rate 50- 90 ERWP
--- NOTE | 2023-05-09 14:15 | DI.RAD_ITS ---
Exam(s) XR HIP LT COMPLETE AP PELVIS EXAM: XR HIP LT COMPLETE AP PELVIS CLINICAL HISTORY: fall, hip pain. TECHNIQUE: 2D digital imaging was performed. Two views. COMPARISON: CR XR THORACIC SPINE COMPLETE from 01/25/2021 FINDINGS: BONES: Exam limited by poor centering of the patient on the AP view. The lateral portion of the prox imal left femur is not included on the image. There is is subcapital fracture of the left femur with mild displacement and angulation. No additional fractures are identified. No bony destructive lesi on is seen. JOINTS: No dislocation present. SOFT TISSUE: Normal. IMPRESSION: Subcapital fracture of the left femur. DATA REPOSITORY: RADIATION DOSE DELIVERED:
--- NOTE | 2023-05-09 14:28 | ED.GENADUL_ITS ---
Discharge Plan Discharge Details Chief Complaint: Fall/Non TraumaCriteria Primary Care Provider: Miguel A Varner ED Provider: Lorrie Boyle Home Meds and New Rx's Prescriptions: No Action ibuprofen 200 mg tablet 400 mg PO Q6H PRN gabapentin 600 mg tablet 600 mg PO QID Qty: 360 3RF Hold Instructions: Prescription Finished acetaminophen [Tylenol Extra Strength] 500 mg tablet 1,000 mg PO TID esomeprazole magnesium [Nexium] 20 MG capsule,delayed release(DR/EC) 20 mg PO DAILY HPI General Date/Time Provider Initiated Documentation: 05/09/23 14:06 . HPI Narrative: This 82-year-old male patient presents with a chief complaint of left hip pain after falling just prior to arrival. The patient is a dialysis patient who gets dialysis on Monday, , Monday. States after dialysis he always feels weak. He states that his left leg gave out on him, causing him to fall on the left-hand side. The patient did not hit his head. He had no loss loss of consciousness, lightheadedness, chest pain, palpitations, or difficulty yarelis thing. He has no neck pain, chest pain, or belly pain after the fall. He did bump his left shoulder but can move it well and says that is not really what is bothering him. He points to his left lateral hip as the location of the pain. Patient denies fever, URI symptoms, nausea, vomiting, diarrhea, or dysuria. He has no leg numbness. He cannot move his left leg due to the pain in his left hip. He has no headache, dizziness, funny rashes. Related Data Home Medications Medication Instructions Recorded Confirmed esomeprazole magnesium 20 mg 20 mg PO DAILY 06/09/17 01/17/23 capsule,delayed release (Nexium) acetaminophen 500 mg tablet 1,000 mg PO TID 02/23/21 01/17/23 (Tylenol Extra Strength) gabapentin 600 mg tablet 600 mg PO QID #360 tabs 03/30/21 01/17/23 ibuprofen 200 mg tablet 400 mg PO Q6H PRN 03/30/21 01/17/23 Previous Rx's Medication Instructions Recorded gabapentin 600 mg tablet 600 mg PO QID #360 tabs 03/30/21 Allergies Allergy/AdvReac Type Severity Reaction Status Date / Time metformin Allergy Intermediate Verified 01/17/23 12:18 Zqfxnzi-OJR-FhI Reductase Allergy Intermediate Verified 01/17/23 12:18 Inhibitor [Tlxbjre-Upf-Wlh Reductase Inhibitor] JAKOB Inhibitors AdvReac Mild Unverified 01/17/23 12:18 TURKEY Allergy Mild Uncoded 01/17/23 12:18 General Stated Complaint: Fall/Non TraumaCriteria SRIDEVI: 3 Review of Systems Narrative: See ROS Exam Narrative Exam Narrative: General: awake and alert 82-year-old male patient in discomfort due to left hip pain Skin: [place] warm and dry, left knee abrasion HEENT: Normocephalic and atraumatic, conjunctiva is normal, oropharynx is clear and lips are moist Neck: Cervical spine nontender to palpation with full range of motion COR: chest is nontender to compression, regular rate and rhythm with no murmur or rub Respiratory: Clear to auscultation bilaterally with good air movement Abdomen: Soft and nontender with normal active bowel sounds, no GR Pelvis: Stable to compression Extremities: Bilateral upper extremities and right lower extremities atraumatic and nontender to palpation with full range of motion; left lower extremity is nontender to palpation, positive knee abrasion; no hip tenderness to palpation but significant pain with any head movement; neurovascularly intact distally with dopplerable pulses bilateral lower extremity DP Neuro: Alert and oriented x 3, strength 5 out of 5 with the exception of the right lower extremity which was not tested, patient is able to wiggle his toes without difficulty and flex his ankle Back: deferred for the moment Course Vital Signs Vital signs: Vital Signs Temperature 36.4 C L 05/09/23 13:59 Pulse 82 05/09/23 13:59 Respiratory Rate 18 05/09/23 13:59 Blood Pressure 159/58 H 05/09/23 13:59 Pulse Oximetry 97 05/09/23 13:59 Temperature 36.4 C L 05/09/23 13:59 Temperature Source Temporal Artery Scan 05/09/23 13:59 Pulse 82 05/09/23 13:59 Respiratory Rate 18 05/09/23 13:59 Respiratory Effort Normal 05/09/23 14:05 Blood Pressure 159/58 H 05/09/23 13:59 Blood Pressure Position Sitting 05/09/23 13:59 Pulse Oximetry 97 05/09/23 13:59 Oxygen Delivery Method Room Air 05/09/23 13:59 Oxygen Flow Rate 0 05/09/23 13:59 Pain Level 9 05/09/23 14:09 Medical Decision Making Patient just had Tylenol 2 hours prior to arrival in the ED. He says he cannot take NSAIDs although pecan mallow dipper had told me in the past that this is not a huge issue and the patient is on dialysis. He does not want to have narcotics because he was on OxyContin for a year and had a very hard time getting off of it. He later said that he was having a lot of spasm and I offered him some IV Valium. We are still waiting for nursing to attempt an IV on him. 1545. Case discussed with Dr. Nickerson from orthopedics. May not be able to do (operate on) the patient here due to dialysis. He will discuss the case with anesthesia and get back to me. 1720. Dr. Eldridge from orthopedics would like the patient to go ER to ER. Dr. Johnson from the emergency department accepts the patient in transfer. The patient and his family are excited that he is going to be going to [facility] which is what he requested. His pain is well-controlled at present as he got another milligram of Dilaudid. Medical Records Medical records reviewed: Yes I reviewed the patient's medical records. Imaging Data Radiologic Study: Imaging: X-Ray (Left hip x-ray: Femoral neck fracture evident.) My impression: CXR: No acute disease, rotated film, dialysis catheter in place Lab Data Lab results reviewed: Yes I reviewed the patient's lab results. ECG Data Attestation: I personally reviewed and interpreted this ECG (s) as follows: (Normal sinus rhythm at 80, first-degree AV block, baseline artifact, early R wave progression) Quality:SDOH Health Related Social Needs: No Data to Display PFSH All Active Problems Ulnar neuropathy of both upper extremities (Acute) Carpal tunnel syndrome on both sides (Acute) Thoracic radiculopathy (Acute) Cervical myelopathy with cervical radiculopathy (Acute) Type 2 diabetes mellitus (Chronic) Acute chest wall pain (Acute) Syncope and collapse determined by examination (Acute) Low back pain (Chronic) Left leg weakness (Acute) Medical History Left foot pain Sleep disturbance Musculoskeletal pain Rib pain Diarrhea Thoracic back pain Degenerative disc disease Chronic back pain Actinic keratosis, hx of Lumbar radiculopathy Lumbar spinal stenosis Basal cell carcinoma (BCC) of skin of upper extremity including shoulder Basal cell carcinoma (BCC) of left ear Basal cell carcinoma (BCC) of right ear Hypertension Reflex sympathetic dystrophy of lower limb Right leg Hyperlipidemia Peripheral neuropathy Renal cyst, congenital, right Retinal hemorrhage Seborrheic dermatitis Hx of adenomatous colonic polyps History of IBS Esophagitis, reflux Lactose intolerance Arthritis of right ankle Hx of head injury Surgical History S/P skin cancer resection S/P cataract extraction S/P right knee surgery S/P cholecystectomy S/P hernia surgery Family History Mother Diabetes Social History Smoking/Tobacco Use Status: Former Tobacco Use Smoking risk assessment performed?: Yes Alcohol Intake: never Drug use: Never Household members: spouse Housing: house Number of Children: 4 current occupation: Retired Pets and animals: Yes Pets and animals: cat(s) What is your relationship status?: Panel score (0-1 are the most socially isolated patients): 1 Seatbelt use: always Do you feel safe at home: Yes Do you feel safe in your relationship?: Yes
[2023-05-09] MEDS: diazePAM 10 MG/2 ML SYR 2.5 MG IVP (14:58)
[2023-05-09] MEDS: Normal Saline 500 ML 30 ML IV (14:59)
[2023-05-09] MEDS: HYDROmorphone 2 MG/ML SYR 0.5 MG IVP (15:25)
[2023-05-09 15:30] LABS: ALT 19 U/L (16-63); AST 40 U/L (15-37); Albumin 3.2 g/dL (3.4-5.0); Alkaline Phosphatase 77 U/L (46-116); Anion Gap 11.4 mmol/L (3-11); BUN 24 mg/dL (7-18); Bilirubin, Total 0.7 mg/dL (0.2-1.0); CO2 27.6 mmol/L (21.0-32.0); Calcium 8.7 mg/dL (8.5-10.1); Chloride 99 mmol/L (98-107); Estimated GFR 15.83 (mL/min/1.73m2); Glucose 156 mg/dL (74-106); Sodium 138 mmol/L (136-145); Total Protein 7.7 g/dL (6.4-8.2)
[2023-05-09 15:33] LABS: CREATININE 3.7 mg/dL (0.70-1.30)
[2023-05-09] MEDS: HYDROmorphone 2 MG/ML SYR 1 MG IVP ×2 (15:59→17:11)
[2023-05-09 16:21] LABS: Bilirubin Negative (Negative); Blood Large (Negative); Clarity Cloudy (Clear); Glucose Negative (Negative); Ketones Trace mg/dL (Negative); Leukocyte Esterase Moderate (Negative); Nitrite Negative (Negative); Specific Gravity 1.025 (1.005-1.025); Urobilinogen 0.2 mg/dL (Up to 0.2); pH 6.5 (5-8)
[2023-05-09 16:28] LABS: Bacteria Many HPF (Negative); C & S Indicated? Yes; Casts Negative LPF (Negative); Crystals Negative HPF (Negative); Epithelial Cells Few HPF (Negative); Mucus Moderate (Negative); WBC >50 HPF (0-5)
== END 2023-05-09 18:11 | disposition home or self-care (01) ==
LOC: ER 14:17
PROVIDERS: Emergency Provider Emergency Medicine; PCP Internal Medicine
DX: S72.012A Unspecified intracapsular fracture of left femur, initial encounter for closed fracture (principal); I12.0 Hypertensive chronic kidney disease with stage 5 chronic kidney disease or end stage renal disease; R94.31 Abnormal electrocardiogram [ECG] [EKG]; E11.22 Type 2 diabetes mellitus with diabetic chronic kidney disease; N18.6 End stage renal disease; Z99.2 Dependence on renal dialysis; W18.39XA Other fall on same level, initial encounter; Y93.01 Activity, walking, marching and hiking; Y92.89 Other specified places as the place of occurrence of the external cause; Z87.891 Personal history of nicotine dependence
CPT/HCPCS: 80053; 86850; 86900; 86901; 87077; 93005; 96361; 96374; 96375; 96376; 99285; 71045; 73502; 81003; 81015; 87086; 87186; 93010; J1170; J3360

== ENCOUNTER → 2023-11-14 14:24 | Outpatient (BNVA) | payer MEDICARE, SELFPAY | PROVIDERS: PCP Family Medicine; Referring Provider Family Medicine; Visit Provider Podiatrist | DX: E11.621 Type 2 diabetes mellitus with foot ulcer (principal); L97.522 Non-pressure chronic ulcer of other part of left foot with fat layer exposed; E11.40 Type 2 diabetes mellitus with diabetic neuropathy, unspecified | CPT/HCPCS: 11042 ==

== ENCOUNTER 2023-11-17 00:27 | Outpatient (CLI) | payer MEDICARE, SELFPAY ==
--- NOTE | 2023-11-17 09:31 | DI.RAD_ITS ---
Exam(s) XR FOOT RT COMPLETE EXAM: XR FOOT RT COMPLETE CLINICAL HISTORY: Comparison views,rt foot pain,m79.671. TECHNIQUE: 2D digital imaging was performed. Four views. Additional sesamoid view performed. COMPARISON: No exams were available for comparison FINDINGS: BONES: No acute fracture is present. No bony destructive lesion is seen. There is no sclerosis of th e sesamoids. Enthesophyte at Achilles insertion. JOINTS: No dislocation present. No significant degenerative changes at the sesamoid 1st metatarsal j oints. SOFT TISSUE: Normal. IMPRESSION: Unremarkable radiographs of the right foot. DATA REPOSITORY: RADIATION DOSE DELIVERED:
--- NOTE | 2023-11-17 09:31 | DI.RAD_ITS ---
Exam(s) XR FOOT LT COMPLETE EXAM: XR FOOT LT COMPLETE CLINICAL HISTORY: Ulcer subfirst metatarsophalangeal joint,L97.529. TECHNIQUE: 2D digital imaging was performed. Four views. Additional sesamoid view. COMPARISON: CR XR FOOT RT COMPLETE from 11/17/2023 FINDINGS: BONES: No acute fracture is present. No bony destructive lesion is seen. No sclerosis of sesamoids. Tiny enthesophyte at the Achilles insertion. Tiny plantar calcaneal spur. JOINTS: No dislocation present. No significant degenerative changes at sesamoid 1st metatarsal head . SOFT TISSUE: Swelling medial to 1st MTP joint. Mild vascular calcifications. IMPRESSION: Unremarkable radiographs of the left foot. DATA REPOSITORY: RADIATION DOSE DELIVERED:
== END 2023-11-17 00:47 ==
LOC: DI 00:27
PROVIDERS: PCP Family Medicine; Visit Provider Podiatrist
DX: E11.40 Type 2 diabetes mellitus with diabetic neuropathy, unspecified; L97.522 Non-pressure chronic ulcer of other part of left foot with fat layer exposed; M79.671 Pain in right foot
CPT/HCPCS: 73630

== ENCOUNTER → 2023-12-20 14:04 | Outpatient (BNVA) | payer MEDICARE, SELFPAY | PROVIDERS: PCP Family Medicine; Referring Provider Family Medicine; Visit Provider Podiatrist | DX: E11.621 Type 2 diabetes mellitus with foot ulcer (principal); L97.522 Non-pressure chronic ulcer of other part of left foot with fat layer exposed; E11.40 Type 2 diabetes mellitus with diabetic neuropathy, unspecified | CPT/HCPCS: 11042 ==

== ENCOUNTER → 2024-01-10 10:05 | Outpatient (BNVA) | payer MEDICARE, SELFPAY | PROVIDERS: PCP Family Medicine; Referring Provider Family Medicine; Visit Provider Podiatrist | DX: E11.621 Type 2 diabetes mellitus with foot ulcer (principal); L97.522 Non-pressure chronic ulcer of other part of left foot with fat layer exposed; E11.42 Type 2 diabetes mellitus with diabetic polyneuropathy; B35.1 Tinea unguium; B35.3 Tinea pedis; L60.3 Nail dystrophy | CPT/HCPCS: 11055; 11721 ==

== ENCOUNTER 2024-04-12 19:00 | Emergency (ER) | payer MEDICARE, SELFPAY ==
[2024-04-12] VITALS (40 sets, daily range): BP systolic 149–186; BP diastolic 54–72; PULSE 84–145; RESP 16–28; TEMP 37.2; O2SAT 92–99
--- NOTE | 2024-04-12 18:45 | RT.EKG_ITS ---
APPROVED REPORT Exam: Resting ECG Reason for Exam: sudden onset weakness Patient Location: E HR:96 bpm ECG Measurements Heart Rate 96 AXIS KS 206 P 67 QRSd 97 QRS 36 QT 355 T 89 QTc 449 Conclusion Sinus rhythm...normal P axis, V-rate 60- 99 Nonspecific T abnormalities, lateral leads...T <-0.10mV, I aVL V5 V6 No STEMI
--- NOTE | 2024-04-12 19:00 | DI.RAD_ITS ---
Exam(s) XR PORTABLE CHEST AP EXAM: XR PORTABLE CHEST AP CLINICAL HISTORY: Weakness TECHNIQUE: 2D digital imaging was performed. COMPARISON: CR XR CHEST 1V IN DI DEPT from 05/09/2023 FINDINGS: The exam is limited by under penetration. Leads overlie the chest. LUNGS: Small right pleural effusion. Adjacent increased densities could represent atelectasis versus pneumonia. Trace left pleural effusion. HEART: Mildly enlarged. AORTA: Normal diameter. BONES: Unremarkable for age. Soft tissues: Surgical clips right axilla. IMPRESSION: Small right pleural effusion. Adjacent densities could indicate compressive atelectasis versus pneum onia. DATA REPOSITORY: RADIATION DOSE DELIVERED:
[2024-04-12 19:42] LABS: BE (Venous) 6 mmol/L (-2-3); HCO3 (Venous) 30 mmol/L (23-28); O2 Sat (Venous) 78 %; TCO2 (Venous) 29 mmol/L (24-29); pCO2 (Venous) 45 mmHg (41-51); pH (Venous) 7.43 (7.31-7.41); pO2 (Venous) 45 mmHg
--- NOTE | 2024-04-12 19:42 | ED.GENADUL_ITS ---
Discharge Plan Disposition Patient Disposition: Transfer-Acute Inpatient Care Specific Acute Inpt Facility: [facility] Discharge Details Chief Complaint: GenMedical Clinical Impression: Acute hypoxic respiratory failure, Acute congestive heart failure, Bone lesion Primary Care Provider: Viktor Galdamez ED Provider: Supa Rolle Mahaffey Meds and New Rx's Prescriptions: No Action gabapentin 600 mg tablet 600 mg PO QID Qty: 360 3RF aspirin 81 mg tablet,delayed release (DR/EC) 81 mg PO DAILY cholecalciferol (vitamin D3) 1,250 mcg (50,000 unit) capsule 1,250 mcg PO QWEEK cyanocobalamin (vitamin B-12) 1,000 mcg tablet 1,000 mcg PO DAILY ergocalciferol (vitamin D2) 1,250 mcg (50,000 unit) capsule 1,250 mcg PO QWEEK loperamide [Anti-Diarrheal (loperamide)] 2 mg tablet 1 mg PO QID PRN metoprolol succinate 25 mg tablet extended release 24 hr 25 mg PO DAILY esomeprazole magnesium [Nexium] 20 mg capsule,delayed release(DR/EC) 20 mg PO DAILY nitroglycerin 0.4 mg tablet, sublingual 0.4 mg sublingual Q5M PRN Rx Instructions: do not exceed 3 doses per episode simvastatin 20 mg tablet 20 mg PO QPM Santyl 250 unit/gram ointment 1 applic topical DAILY Qty: 90 0RF Rx Instructions: 1.3 x 0.8 x 0.3 cm MediHoney (honey) 80 % gel 1 applic topical DAILY Qty: 44 0RF ketoconazole 2 % cream 1 applic topical DAILY Qty: 120 6RF Rx Instructions: Apply to toenails once daily esomeprazole magnesium [Nexium] 20 MG capsule,delayed release(DR/EC) 20 mg PO DAILY HPI General Date/Time Provider Initiated Documentation: 04/12/24 19:03 . HPI Narrative: MDM This is a hypoxic 83-year-old normothermic and not tachycardic male was CKD on dialysis no other extremity edema bilateral B-lines concerning for acute heart failure will obtain labs participate diuresis. Given hypoxia will swab for flu and send D-dimer to assess for PE. Not hypotensive nor febrile so my suspicion is low for sepsis I did not send a lactate nor treat empirically with broad- spectrum antibiotics. No pain or proportion to suggest necrotizing soft tissue infection. No rash to chest to suggest zoster. I considered CVA however patient has no focal areas of weakness I do not feel that he is a lytic candidate nor he benefit from an MRI. No nuchal rigidity to suggest meningitis. Patient complains of bilateral rib pain but has not had any trauma to suggest pneumothorax. Will obtain chest x-ray. Patient requires dialysis tomorrow. His ECG shows first-degree AV block but narrow complex. Will check basic metabolic panel to ensure that he is not markedly hyperkalemic. 11:[address] angiogram showed moderate right greater than left pleural effusions. Patient also had bony lesions concerning for metastasis. I advised him of this incidental finding. We also discussed his concern for acute versus subacute right rib fractures. He denies any recent trauma and as result was not concerned for any rib fracture. Will attempt to have patient transfer to a dialysis capable hospital. 1:15 PM Patient was accepted by Dr. Margot Nieves in the emergency department at [facility]. I signed transfer paperwork. I updated the patient. He confirmed full code. Chronic conditions affecting the care of the patient: Dialysis dependent History obtained from an outside historian: Paramedics External record review: [facility] EMR Diagnostic interpretations performed by me: Per my independent interpretation chest x-ray shows: Per my independent interpretation EKG shows: Normal sinus rhythm at a rate of 96 with appears to be AV block. No acute injury pattern. ]Medications: Furosemide Social determinants of health affecting disposition: N/A Management discussed with: N/A Treatment/interventions considered: N/A Response to therapies provided: N/A HPI This is a dialysis dependent 83-year-old arriving to the emergency department via EMS in the setting of generalized body weakness that began yesterday. She had difficulty standing. He has not had any focal areas of weakness. Is not been confused. He denies chest pain shortness of breath nausea vomiting sore throat. He is due for dialysis tomorrow. He was noted to be hypoxic and requiring 2 L nasal cannula. Exam General: Elderly-appearing in no acute distress speaking in complete sentences. Head: Normocephalic, atraumatic. Eye: Extraocular eye movements intact. No conjunctival injection. No scleral icterus. Ear, nose, mouth, throat: Grossly normal inspection. Normal voice, handling secretions normally. Neck: Trachea midline. Cardiovascular: Well-perfused distal extremities. Regular rate and rhythm Respiratory: Nonlabored respiration. Decreased breath sounds bilateral bases Gastrointestinal: Nondistended abdomen. Soft nontender. Musculoskeletal: bilateral lower extremity pitting edema. Moving all 4 extremities spontaneously. Skin: Normal for age and race, grossly normal temperature and turgor. No acute rash. Neurologic: Alert and appropriate, no apparent acute deficits. GCS 15. Psychiatric: Mood and manner are appropriate. Grooming and personal hygiene are appropriate. Related Data Home Medications ?Medication ?Instructions ?Recorded ?Confirmed esomeprazole magnesium 20 mg 20 mg PO DAILY 06/09/17 04/12/24 capsule,delayed release (Nexium) gabapentin 600 mg tablet 600 mg PO QID #360 tabs 03/30/21 04/12/24 aspirin 81 mg tablet,delayed 81 mg PO DAILY 11/09/23 04/12/24 release cholecalciferol (vitamin D3) 1,250 1,250 mcg PO QWEEK 11/09/23 04/12/24 mcg (50,000 unit) capsule cyanocobalamin (vitamin B-12) 1,000 mcg PO DAILY 11/09/23 04/12/24 1,000 mcg tablet ergocalciferol (vitamin D2) 1,250 1,250 mcg PO QWEEK 11/09/23 04/12/24 mcg (50,000 unit) capsule esomeprazole magnesium 20 mg 20 mg PO DAILY 11/09/23 04/12/24 capsule,delayed release (Nexium) loperamide 2 mg tablet 1 mg PO QID PRN 11/09/23 04/12/24 (Anti-Diarrheal (loperamide)) metoprolol succinate 25 mg 25 mg PO DAILY 11/09/23 04/12/24 tablet,extended release 24 hr nitroglycerin 0.4 mg sublingual 0.4 mg sublingual Q5M PRN 11/09/23 04/12/24 tablet simvastatin 20 mg tablet 20 mg PO QPM 11/09/23 04/12/24 collagenase clostridium histo. 250 1 applic topical DAILY #90 grams 11/14/23 04/12/24 unit/gram topical ointment (Santyl) honey 80 % topical gel (MediHoney 1 applic topical DAILY #44 mL 11/15/23 04/12/24 (honey)) ketoconazole 2 % topical cream 1 applic topical DAILY #120 grams 01/10/24 04/12/24 Previous Rx's ?Medication ?Instructions ?Recorded gabapentin 600 mg tablet 600 mg PO QID #360 tabs 03/30/21 collagenase clostridium histo. 250 1 applic topical DAILY #90 grams 11/14/23 unit/gram topical ointment (Santyl) honey 80 % topical gel (MediHoney 1 applic topical DAILY #44 mL 11/15/23 (honey)) ketoconazole 2 % topical cream 1 applic topical DAILY #120 grams 01/10/24 Allergies Allergy/AdvReac Type Severity Reaction Status Date / Time metformin Allergy Intermediate Verified 01/17/23 12:18 Pkggfkf-CRF-BrO Reductase Allergy Intermediate Verified 01/17/23 12:18 Inhibitor (Yjlmblh-Htu-Kjp Reductase Inhibitor) JAKOB Inhibitors AdvReac Mild Unverified 01/17/23 12:18 TURKEY Allergy Mild Uncoded 01/17/23 12:18 General Stated Complaint: GenMedical SRIDEVI: 3 Course Vital Signs Vital signs: Vital Signs Temperature 37.2 C 04/12/24 19:05 Pulse 97 H 04/12/24 19:05 Respiratory Rate 24 04/12/24 19:05 Blood Pressure 149/56 H 04/12/24 19:05 Pulse Oximetry 97 04/12/24 19:05 Temperature 37.2 C 04/12/24 19:05 Temperature Source Tympanic 04/12/24 19:05 Pulse 97 H 04/12/24 19:05 Respiratory Rate 24 04/12/24 19:05 Blood Pressure 149/56 H 04/12/24 19:05 Blood Pressure Position Supine 04/12/24 19:05 Pulse Oximetry 97 04/12/24 19:05 Oxygen Delivery Method Room Air 04/12/24 19:05 Oxygen Flow Rate 0 04/12/24 19:05 Pain Level 7 04/12/24 19:05 Medical Decision Making Quality:SDOH Health Related Social Needs: No Data to Display PFSH All Active Problems (Updated 04/12/24 @ 23:20 by Supa Rolle MD) Bone lesion (Acute) Acute congestive heart failure (Acute) Acute hypoxic respiratory failure (Acute) Tinea pedis (Acute) Nail dystrophy (Acute) Onychomycosis (Acute) Pain in right foot (Acute) Non-healing ulcer of left foot (Acute) Diabetes mellitus with neuropathy (Acute) Neuropathic ulcer of left foot (Acute) Ulcer of left foot with fat layer exposed (Acute) Ulnar neuropathy of both upper extremities (Acute) Carpal tunnel syndrome on both sides (Acute) Thoracic radiculopathy (Acute) Cervical myelopathy with cervical radiculopathy (Acute) Type 2 diabetes mellitus (Chronic) Acute chest wall pain (Acute) Syncope and collapse determined by examination (Acute) Low back pain (Chronic) Left leg weakness (Acute) Medical History Left foot pain Sleep disturbance Musculoskeletal pain Rib pain Diarrhea Thoracic back pain Degenerative disc disease Chronic back pain Actinic keratosis, hx of Lumbar radiculopathy Lumbar spinal stenosis Basal cell carcinoma (BCC) of skin of upper extremity including shoulder Basal cell carcinoma (BCC) of left ear Basal cell carcinoma (BCC) of right ear Hypertension Reflex sympathetic dystrophy of lower limb Right leg Hyperlipidemia Peripheral neuropathy Renal cyst, congenital, right Retinal hemorrhage Seborrheic dermatitis Hx of adenomatous colonic polyps History of IBS Esophagitis, reflux Lactose intolerance Arthritis of right ankle Hx of head injury Surgical History S/P skin cancer resection S/P cataract extraction S/P right knee surgery S/P cholecystectomy S/P hernia surgery Family History Mother Diabetes Social History Smoking/Tobacco Use Status: Former Tobacco Use Smoking risk assessment performed?: Yes Alcohol Intake: never Drug use: Never Substance use type: does not use Household members: spouse Housing: house Number of Children: 4 current occupation: Retired Pets and animals: Yes Pets and animals: cat(s) What is your relationship status?: Panel score (0-1 are the most socially isolated patients): 1 Seatbelt use: always Do you feel safe at home: Yes Do you feel safe in your relationship?: Yes POCUS Exam (ED) Limited Cardiac Exam DATE OF EXAM: 04/12/24 TIME OF EXAM: 19:43 PROVIDER THAT PERFORMED THE STUDY: Supa Rolle IS THIS A REPEAT EXAM DURING THIS ENCOUNTER: no REASON FOR EXAM: Dyspnea VISUALIZED STRUCTURES: Four Chambers, Left ventricle and LVOT VIEW OBTAINED: Apical 4-Chamber, Parasternal long-axis, Subxiphoid and Other (Lungs bilaterally) PERTINENT FINDINGS/IMPRESSION: No pericardial effusion and No RV dilation DIFFERENTIAL DIAGNOSES: Aortic outflow track less than 4 cm, moderate squeeze, RV less than LV, no significant pericardial effusion. Bilateral B-lines. Exam complete
[2024-04-12 19:46] LABS: Abs Immature Grans 0.13 10^3/uL (0.0-0.06); Absolute Basophil Count 0.02 10^3/uL (0.0-0.2); Absolute Eosinophil Count 0.17 10^3/uL (0.0-0.7); Absolute Lymphocyte Count 0.89 10^3/uL (1.2-3.4); Absolute Monocyte Count 0.74 10^3/uL (0.1-0.8); Absolute Neutrophil Count 8.31 10^3/uL (1.2-6.7); Basophils % 0.2 %; Eosinophils % 1.7 %; HCT 27.7 % (40.0-50.0); HGB 8.6 g/dL (13.5-17.5); Immature Grans % 1.3 %; Lymphocytes % 8.7 %; MCH 30.7 pg (27.0-33.0); MCV 99 fL (80-95); MPV 9.8 fL (8.0-11.0); Monocytes % 7.2 %; Neutrophils % 80.9 %; Nucleated RBC 0.4 % (0.0-0.3); Platelet Count 228 10^3/uL (130-400); RDW 17.7 % (11.8-14.1); RDW-SD 63.3 fL; WBC 10.26 10^3/uL (4.4-10.8)
--- NOTE | 2024-04-12 19:59 | DI.VRAD_ITS ---
PROCEDURE INFORMATION: Exam: XR Chest Exam date and time: 04/12/2024 7:50 PM Age: 83 years old Clinical indication: Other: Weakness TECHNIQUE: Imaging protocol: Radiologic exam of the chest. Views: 1 view. COMPARISON: CR XR CHEST 1V IN DI DEPT 05/09/2023 3:38 PM FINDINGS: Lungs: Opacities in right base may represent atelectasis or pneumonia. . Pleural spaces: Mild right pleural effusion.. Heart/Mediastinum: Cardiomegaly Bones/joints: Stable Soft tissues: Surgical clips in the right axilla IMPRESSION: 1. Opacities in right base may represent atelectasis or pneumonia. . 2. Mild right pleural effusion.. Dictated and Authenticated by: Xiomara Davis MD. Orderin Aquilino Cowart MD
[2024-04-12 20:09] LABS: ALT 16 U/L (16-63); AST 17 U/L (15-37); Albumin 2.7 g/dL (3.4-5.0); Alkaline Phosphatase 114 U/L (46-116); Anion Gap 5.4 mmol/L (3-11); BUN 40 mg/dL (7-18); Bilirubin, Total 0.63 mg/dL (0.2-1.0); CO2 31.6 mmol/L (21.0-32.0); CREATININE 3.1 mg/dL (0.70-1.30); Calcium 10.9 mg/dL (8.5-10.1); Chloride 104 mmol/L (98-107); Creatine Kinase 17 U/L (39-308); Estimated GFR 19.45 (mL/min/1.73m2); Glucose 211 mg/dL (74-106); Potassium 4.5 mmol/L (3.5-5.1); Sodium 141 mmol/L (136-145); Total Protein 6.8 g/dL (6.4-8.2); Troponin I 19 ng/L (<or=76)
[2024-04-12 20:17] LABS: D-Dimer > 7500 ng/mlFEU (<500)
--- NOTE | 2024-04-12 20:30 | DI.CT_ITS ---
Exam(s) CT CHEST PE CTA EXAM: CT CHEST PE CTA CLINICAL HISTORY: Shortness of breath dimer. TECHNIQUE: Imaging Protocol: Axial CT angiography was performed with multi-slice acquisition and mu lti-planar reconstructions as well as axial, coronal and sagittal MIP reconstructions. Computer aided detection (CAD) was utilized. CONTRAST MATERIAL: Intravenous: Omnipaque 350 Contrast volume:80 ml COMPARISON: CT CT CHEST PE CTA from 10/13/2020 CR,XR XR PORTABLE CHEST AP from 04/12/2024 FINDINGS: Pulmonary Arteries: No evidence of filling defect to suggest pulmonary emboli. Mediastinum and Symone: No dominant adenopathy or fluid collection. Small mediastinal lymph nodes, li tommie reactive. Pulmonary parenchyma: Not well evaluated due to expiratory changes. Basilar atelectasis adjacent to the effusions. No dominant measurable mass. Mild underlying emphysematous changes. 5 millimeter n odule right upper lobe. 5 millimeter nodule noted in the lingula. 6 x 4 millimeter nodule periphera l right upper lobe versus scarring. These nodules are not seen on the prior exam. Pleura: Moderate size right pleural effusion. Small left pleural effusion. No pneumothorax. Heart: The heart is moderately dilated. Moderate coronary artery calcifications are seen. Aorta: Thoracic aorta non-dilated. No dissection. Mild atherosclerotic changes. Upper abdomen: No acute findings. Bones: Abnormal lucencies noted in the right humeral head, bilateral scapula, sternum and right clavi danielle. Multiple abnormal lucent lesions are noted in the thoracic spine. There are also multiple lyti c lesions in the bilateral ribs. Pathologic rib fractures are noted involving right lower ribs. The se are all new from the 2020 examination. Tubes, Catheters, and Lines: None Soft tissues: Unremarkable. IMPRESSION: No evidence of pulmonary embolism. Moderate right and small left pleural effusions. The lung parenchyma is not well evaluated due to e xpiratory changes over the there 3 nodules which are new since 202. Widespread lytic bony lesions, suspicious for metastases. RADIATION DOSE DELIVERED: Total DLP DATA REPOSITORY: All CT scans at this facility are submitted to the National Radiology Data Registry (NRDR) Dose Index Registry (DIR) with the [employer] (A[employer]). RADIATION OPTIMIZATION: All CT scans at this facility use at least one of these dose optimization te chniques: automated exposure control; mA and/or kV adjustment per patient size (includes targeted exa ms where dose is matched to clinical indication); or iterative reconstruction.
[2024-04-12] MEDS: Doxycycline Hyclate 100 MG CAP PO (21:25)
[2024-04-12] MEDS: cefTRIAXone 2 GM/50 ML BAG IVPB (21:25)
[2024-04-12 21:55] LABS: Troponin I 15 ng/L (<or=76)
[2024-04-12] MEDS: Omnipaque 350 MG/ML 100 ML BTL 80 ML IJ (22:26)
[2024-04-12] MEDS: Normal Saline - Diluent 50 ML VIAL IJ (22:27)
--- NOTE | 2024-04-12 22:49 | DI.VRAD_ITS ---
PROCEDURE INFORMATION: Exam: CTA Chest With Contrast Exam date and time: 04/12/2024 10:17 PM Age: 83 years old Clinical indication: Other: Shortness of breath dimer TECHNIQUE: Imaging protocol: Computed tomographic angiography of the chest with contrast. Exam focused on the arteries. 3D rendering (Not supervised by radiologist): MIP and/or 3D reconstructed images were created by the technologist. Contrast material: OMNIPAQUE 350; Contrast volume: 80 ml; Contrast route: INTRAVENOUS (IV); COMPARISON: CT CHEST PE CTA 10/13/2020 9:50 PM FINDINGS: Pulmonary arteries: No pulmonary emboli. Aorta: No aortic aneurysm. No aortic dissection. Lungs: Moderate pulmonary emphysema, similar to prior. A few small pulmonary nodules appear new and are indeterminate. Moderate dependent subsegmental atelectasis. No evidence of pneumonia. Pleural spaces: New moderate eyhpy-afodgec-adjj-left pleural effusions. No pneumothorax. Heart: Mild cardiomegaly, stable. Lymph nodes: Subcarinal and AP window lymph nodes prominent but not pathologically enlarged. Gallbladder and biliary ducts: Cholecystectomy. Bones/joints: Lucencies in the femoral head measuring up to 15 mm, additional scattered radiolucencies. Cortical erosion of the right humeral head lesions. Right lateral rib deformities, 3rd and 7th ribs as well as right lateral 8th rib and 9th rib, acute to subacute, with possible underlying lucencies at these locations. Sternal lucent lesion. Suspected thoracolumbar lucent lesions. Soft tissues: No suspicious lesions. IMPRESSION: 1. Cardiomegaly and CHF. New moderate kbhez-jstjqpq-wiqp-left pleural effusions. 2. Bony lesions concerning for metastases. Acute to subacute right rib fractures could be pathologic. 3. Additional findings as described. Dictated and Authenticated by: Diane Goodwin MD. Orderin Aquilino Cowart MD
[2024-04-12] MEDS: Furosemide 40 MG/4 ML VIAL IVP (23:25)
[2024-04-13] VITALS (79 sets, daily range): BP systolic 101–194; BP diastolic 50–107; PULSE 78–98; RESP 17–32; O2SAT 91–99
[2024-04-13] MEDS: Metoprolol 5 MG/5 ML VIAL IVP (01:48)
== END 2024-04-13 10:41 | disposition short-term general hospital (02) ==
PROVIDERS: Emergency Provider Emergency Medicine; PCP Family Medicine
DX: R53.1 Weakness (principal); E11.22 Type 2 diabetes mellitus with diabetic chronic kidney disease; I13.2 Hypertensive heart and chronic kidney disease with heart failure and with stage 5 chronic kidney disease, or end stage renal disease; I50.9 Heart failure, unspecified; N18.6 End stage renal disease; J96.01 Acute respiratory failure with hypoxia; Z79.82 Long term (current) use of aspirin; Z79.84 Long term (current) use of oral hypoglycemic drugs; Z87.891 Personal history of nicotine dependence
CPT/HCPCS: 36415; 71275; 80053; 82550; 82805; 86850; 86900; 86901; 93005; 93308; 96365; 96375; 99285; 71045; 83880; 84484; 85025; 85379; 93010; J0696; J1940; J3490